=== PATIENT | female | born 1945 ===

== ENCOUNTER 2023-10-02 13:41 | Outpatient (REF) | payer MEDICARE, SELFPAY ==
[2023-10-02 13:54] LABS: Appearance Urine Turbid; Color Urine Yellow; Glucose Urine UA Negative (Negative); Leukocyte Esterase Urine Large (3+) (Negative); Nitrite Urine Negative (Negative); UMIC TRIGGER UACC YES; Urine Blood Moderate (2+) (Negative); Urine Ketones Negative (Negative); Urine Protein Trace mg/dL (Neg-Trace)
[2023-10-02 13:59] LABS: Bacteria Urine 4+ (None Seen); Squamous Epithelial Cell Urine 0-2 /HPF (0-2); UACC Culture Trigger YES; WBC Urine >50 /HPF (0-5)
== END 2023-10-02 13:42 | disposition home or self-care (01) ==
LOC: HO.MANLNP 13:41
PROVIDERS: Visit Provider Physician Assistant
DX: R30.0 Dysuria (principal)
CPT/HCPCS: 81001; 87086; 87088; 87186

== ENCOUNTER 2024-04-17 10:24 | Outpatient (REF) | payer MEDICARE, SELFPAY ==
--- OUTSIDE RECORDS SUMMARY | 2024-04-17 11:15 | XMS_ITS | Data Portability ---
Author Organization [facility], Home Service Address [address] [place] [address] Assessment Encounter Date Assessment Date Assessment LastModified by Organization Details LastModified Time 07/06/2022 07/06/20[place] [id number] [place] [id number] (CATERING COORDINATOR) : [facility] LOW MUST MEET 2 OF 3 ELEMENTS: PROBLEMS, DATA OR RISK ELEMENT 1: PROBLEMS ADDRESSED (LOW): 2 OR MORE SELF-LIMITED OR MINOR PROBLEMS OR 1 STABLE CHRONIC ILLNESS OR 1 ACUTE UNCOMPLICATED ILLNESS OR INJURY ELEMENT 2: DATA TO BE REVISED AND ANALYZED (LOW) MUST MEET 1 OF 2 CATEGORIES: CATEGORY 1. REVIEW OF PRIOR EXTERNAL NOTES/RESULTS, ORDERING OF TEST(S) CATEGORY 2. ASSESSMENT REQUIRING INDEPENDENT HISTORIAN(S) INCLUDE WHO THE HISTORIAN IS AND RELATION TO PT AND WHY PT IS UNABLE TO GIVE COMPLETE HISTORY ELEMENT 3: RISK (LOW) RISK OF COMPLICATIONS AND/OR MORBIDITY OR MORTALITY OF PATIENT MANAGEMENT PROVIDER MUST THOROUGHLY DOCUMENT ALL OF THE ELEMENTS COVERED Not available 07/06/2022 12:10:50 10/02/2023 10/02/2023 The patient denies recent falls or recurrent falls. Denies instability, weakness, abnormal gait, or difficulties with movement. The patient wears correct, supportive shoes and is not otherwise severely visually impaired. The patient is full weight bearing and if using the assistance of a cane or walker feels supported and stable with the use of such devices. All medical conditions have been taken into account that may pose a risk for the patient for falls. Home adelia, carpets and/or rugs do not pose a challenge for the patient. The patient has been educated about the use of vitamin D supplementation for bone health and prevention of hypotensive episodes that may increase risk for fall. All question and concerns were answered to the patient's satisfaction. [email or web address] Not available 10/02/2023 10:16:44 Plan of Treatment Reminders Order Date Submit Date Provider Last Modified By Organization Details Last Modified Time Details Appointments ANNUAL EXAM 2024 10:00A M RUBIN SINGH Not available Not available Not available Lab urinalysi s, dipstick 2023 024 [email or web address] [facility], [address], [address], [place], [address], 10/02/2023 10:13:42 urinalysi s complete, reflex culture 2023 [facility], [address] [facility], [place], [address], 10/03/2023 11:16:55 CMP, serum or plasma 2023 [facility], [place], [address], 10/02/2023 10:19:48 CBC w/ auto diff 2023 024 [facility], [place], [address], 10/02/2023 10:19:48 lipid panel, blood 2023 024 [email or web address], [place], [address], 10/02/2023 10:19:48 vitamin D, 25-hydrox y, total, serum 2023 024 [facility], [place], [address], 10/02/2023 10:19:49 TSH + free T4, serum 2023 024 [facility], [place], [address], 10/02/2023 10:19:48 hemoglobi n A1c, QN, blood 2023 024 [facility] [place], [address], 10/02/2023 10:19:48 urinalysi s, dipstick 2023 024 [email or web address] [facility], [address] [place] [address], [address], [place], [address], 06/18/2023 10:41:08 urinalysi s complete, reflex culture 2023 024 [email or web address] Not available 06/18/2023 10:42:43 urinalysi s, dipstick 2022 023 [facility], [address] [place] [address], [address], [place], [address], 06/27/2022 12:34:45 Referral None recorded. Procedures None recorded. Surgeries None recorded. Imaging None recorded. Medication Orders sulfameth oxazole 800 mg-trimet hoprim 160 mg tablet 2023 024 [facility], [address] [place], [address], 10/02/2023 10:15:49 Bactrim DS 800 mg-160 mg tablet 2023 024 [facility], [address] [place], [address], 10/02/2023 10:09:17 cephalexi n 500 mg capsule 2022 023 [email or web address] [facility]armacy [facility], [address] [place], [address], 07/06/2022 11:50:29 Patient TargetsNo targets recorded. Patient Instructions Encounter Date Encounter Id Patient Instructions Last Modified By Organization Details Last Modified Time 06/27/2022 [id number] Urinary Tract Infection (UTI) in Women: Care Instructions Not available 06/27/2022 12:34:46 painful urinatio n (dysuria): care instructions Not available 06/27/2022 12:34:46 Reason for Referral None Reported. Results Created Date Observation Date Name Description Value Unit Range Abnormal Flag Note LastModifiedBy Organization Detail LastModifiedTime 06/28/1906/27/2022 urina lysis , dipst ick Leukocytes Large Not Available [facility] [address] [place] [address] D, [place], [address], 06/27/2022 12:00:45 06/28/19 23 06/27/2022 urina lysis , dipst ick Nitrite negati ve Not Available [facility] [address], [place], [address], 06/27/2022 12:00:45 06/28/19 23 06/27/2022 urina lysis , dipst ick Urobilinogen .2 Not Available [facility] [address] [place] [address] D, [place], [address], 06/27/2022 12:00:45 06/28/19 23 06/27/2022 urina lysis , dipst ick Protein 30 Not Available [address], [place], [address], 06/27/2022 12:00:45 06/28/19 23 06/27/2022 urina lysis , dipst ick pH 6.0 Not Available [facility] [address], [place], [address], 06/27/2022 12:00:45 06/28/19 23 06/27/2022 urina lysis , dipst ick Blood Large Not Available [facility] [address] [place] [address] D, [place], [address], 06/27/2022 12:00:45 06/28/19 23 06/27/2022 urina lysis , dipst ick Specific [place] 1.020 Not Available [facility] [address], [place], [address], 06/27/2022 12:00:45 06/28/19 23 06/27/2022 urina lysis , dipst ick Ketone Negati ve Not Available [facility] [address], [place], [address], 06/27/2022 12:00:45 06/28/19 23 06/27/2022 urina lysis , dipst ick Bilirubin Negati ve Not Available [facility] [address], [place], [address], 06/27/2022 12:00:45 06/28/19 23 06/27/2022 urina lysis , dipst ick Glucose Negati ve Not Available [facility] [address], [place], [address], 06/27/2022 12:00:45 06/28/19 23 06/27/2022 urina lysis , dipst ick Appearance Cloudy Not Available [facility] [address], [place], [address], 06/27/2022 12:00:45 06/28/19 23 06/27/2022 urina lysis , dipst ick Color Yellow Not Available [facility] [address], [place], [address], 06/27/2022 12:00:45 06/18/19 24 06/18/2023 urina lysis , dipst ick Leukocytes Small Not Available [facility] [address], [place], [address], 06/18/2023 10:38:42 06/18/19 24 06/18/2023 urina lysis , dipst ick Nitrite positi ve Not Available [facility] [address], [place], [address], 06/18/2023 10:38:42 06/18/19 24 06/18/2023 urina lysis , dipst ick Urobilinogen 1 Not Available [facility] [address], [place], [address], 06/18/2023 10:38:42 06/18/19 24 06/18/2023 urina lysis , dipst ick Protein Trace Not Available [facility] [address], [place], [address], 06/18/2023 10:38:42 06/18/19 24 06/18/2023 urina lysis , dipst ick pH 5.5 Not Available [address], [place], [address], 06/18/2023 10:38:42 06/18/19 24 06/18/2023 urina lysis , dipst ick Blood Small Not Available [address], [place], [address], 06/18/2023 10:38:42 06/18/19 24 06/18/2023 urina lysis , dipst ick Specific [place] 1.025 Not Available [address], [place], [address], 06/18/2023 10:38:42 06/18/19 24 06/18/2023 urina lysis , dipst ick Ketone Small Not Available [address], [place], [address], 06/18/2023 10:38:42 06/18/19 24 06/18/2023 urina lysis , dipst ick Bilirubin Negati ve Not Available [facility] [address], [place], [address], 06/18/2023 10:38:42 06/18/19 24 06/18/2023 urina lysis , dipst ick Glucose Negati ve Not Available [address], [place], [address], 06/18/2023 10:38:42 06/18/19 24 06/18/2023 urina lysis , dipst ick Appearance Clear Not Available [address], [place], [address], 06/18/2023 10:38:42 06/18/19 24 06/18/2023 urina lysis , dipst ick Color Dark Yellow Not Available [address], [place], [address], 06/18/2023 10:38:42 10/02/19 24 10/02/2023 urina lysis , dipst ick Leukocytes Modera te Not Available [address], [place], [address], 10/02/2023 10:07:56 10/02/19 24 10/02/2023 urina lysis , dipst ick Nitrite positi ve Not Available [address], [place], [address], 10/02/2023 10:07:56 10/02/19 24 10/02/2023 urina lysis , dipst ick Urobilinogen .2 Not Available [address], [place], [address], 10/02/2023 10:07:56 10/02/19 24 10/02/2023 urina lysis , dipst ick Protein Negati ve Not Available [address], [place], [address], 10/02/2023 10:07:56 10/02/19 24 10/02/2023 urina lysis , dipst ick pH 6.0 Not Available [facility] [address], [place], [address], 10/02/2023 10:07:56 10/02/19 24 10/02/2023 urina lysis , dipst ick Blood Modera te Not Available [facility] [address], [place], [address], 10/02/2023 10:07:56 10/02/19 24 10/02/2023 urina lysis , dipst ick Specific [place] 1.015 Not Available [facility] [address], [place], [address], 10/02/2023 10:07:56 10/02/19 24 10/02/2023 urina lysis , dipst ick Ketone Negati ve Not Available [facility] [address], [place], [address], 10/02/2023 10:07:56 10/02/19 24 10/02/2023 urina lysis , dipst ick Bilirubin Negati ve Not Available [facility] [address], [place], [address], 10/02/2023 10:07:56 10/02/19 24 10/02/2023 urina lysis , dipst ick Glucose Negati ve Not Available [facility] [address], [place], [address], 10/02/2023 10:07:56 10/02/19 24 10/02/2023 urina lysis , dipst ick Appearance Cloudy Not Available [facility] [address], [place], [address], 10/02/2023 10:07:56 10/02/19 24 10/02/2023 urina lysis , dipst ick Color Pale Yellow Not Available [facility] [address], [place], [address], 10/02/2023 10:07:56 Result Notes None recorded. 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 0337687697 018579 Active 2018 Right thumb Not Available [facility] 16:20:10 Bunion 969952180 Active 2018 Great toe right foot Not Available [facility] 16:20:10 Fibrocys tic disease of breast 53900501 Active 2018 Not Available [facility] 16:20:10 Disorder of urinary bladder 82613632 Completed 201807/18/2018 bladder infectio ns Deana escobedo [facility] 9 16:46:56 Varicell a 50410708 Completed 201807/18/2018 Deana escobedo [facility] 9 16:47:08 Human papillom a virus infectio n 352315563 Completed 201807/21/2018 last pap 10/09 - negative for hpv June CHESTER Arredondo [address], [place], [address], [facility] 9 09:49:53 Osteoart hritis of knee 190440131 Active 2018 both knees Not Available [facility] 16:20:10 Uterine prolapse 97719512 Active 2018 pessary Not Available [facility] 16:20:10 Psoriasi s 0480831 Active 2018 Not Available [facility] 16:20:10 Eczema 98465832 Active 2018 Not Available [facility] 16:20:10 Adenomat ous polyp of colon 117976229 Active 2018 Not Available [facility] 1 16:20:10 Essentia l hyperten earnest 61384831 Active 2019 Not Available [facility] 16:20:10 Hearing loss 90239681 Active 2019 Not Available [facility] 16:20:10 COVID-19 658759673 Active 2021 [facility] 09:09:16 Urinary tract infectio us disease 87353716 Active 2022 Gabriel Munoz DO [address] [place] [address], [address], [facility] 3 12:29:53 Surgical incision wound of skin 4729665951 00 Active 2022 Gabriel Munoz DO [address] [place] [address], [address], [facility] 3 12:32:19 Local infectio n of wound 74752942 Active 2022 Gabriel Munoz DO [address] [place] [address], [address], [facility] 3 12:10:09 Impacted cerumen 37900649 Active 2022 RUBIN SINGH [address] [place] [address], [address], [facility] 3 14:39:31 Acute urinary tract infectio n 126848199 Active 2023 RUBIN SINGH [address] [place] [address], [address], [facility] 4 10:37:33 Dysuria 33988254 Active 2023 RUBIN SINGH [address] [place], [address], [facility] 4 10:16:08 Problem Notes None recorded. Procedures Surgical History Date Name Laterality Status Provider Name and Address Organization Details Recorded Time 10/17/19 23 Cerumen Removal completed RUBIN SINGH [address] [place], [address], [facility] 10/16/2022 14:39:18 01/14/20 19 Cerumen Removal completed Juliette CHESTER Arredondo [address] [place], [address], [facility] 01/13/2019 10:34:33 10/07/19 19 Most Recent Mammogram completed [facility] 01/26/2019 14:15:16 12/12/19 12 colonoscopy completed June [facility] [address] [place], [address], [facility] 07/21/2018 09:56:37 10/13/19 08 Date of Last Pap Smear completed [facility] 07/18/2018 16:51:38 Imaging Results None recorded. Procedure Notes None recorded. Medical Equipment None Reported. Allergies Allergen ID Allergen Name Allergen Category Reaction Reaction Severity Criticality Documentation Date Start Date Code Code System Note Provider Name and Address Organization Details Recorded Time 4697 POLLEN EXTRACTS environme nt,medica tion Not available Not available Not available 10/25/2020 23930 6 RxNorm Ruth Mercado [facility] 1 08:42:25 6792 Keflex medicatio n Not available Not available Not available 07/17/202265842 7 RxNorm Gabriel Munoz, [address] [place], [address], [facility] [employer] [facility] 3 16:21:00 Medications Name Sig Start Date Stop Date Status Note LastModified by Organization Details LastModified Time celecoxib 200 mg capsule TAKE 1 CAPSULE BY MOUTH EVERY DAY . MEDICATIO N TO BE STARTED ON 3 07/06 completed Not Available Not Available Not Available amoxicilli n 500 mg capsule TAKE DIRECTED 4 TABS BY MOUTH 1 HR PRIOR DENTAL APPT active Not Available Not Available No t Available desonide 0.05 % topical cream 07/06 completed Not Available Not Available Not Available Vitamin C 500 mg tablet Take 1 tablet every day by oral route. 10/01 completed Not Available Not Available Not Available azithromyc in 250 mg tablet TAKE 2 TABLETS (500 MG) BY ORAL ROUTE ONCE DAILY FOR 1 DAY THEN 1 TABLET (250 MG) BY ORAL ROUTE ONCE DAILY FOR 4 DAYS 07/06 completed Not Available Not Available Not Available tizanidine 4 mg tablet TAKE 0.5 TO 1 TABLET UP TO THREE TIMES A DAY NEEDED FOR MUSCLE SPASMS 07/06 completed Not Available Not Available Not Available meloxicam 15 mg tablet TAKE 1 TABLET BY MOUTH EVERY DAY 07/06 completed Not Available Not Available Not Available ondansetro n HCl 4 mg tablet TAKE 1 TABLET BY MOUTH EVERY 8 HOURS NEEDED FOR NAUSEA AND VOMITING 07/06 completed Not Available Not Available Not Available sulfametho xazole 800 mg-trimeth oprim 160 mg tablet TAKE 1 TABLET BY MOUTH EVERY 12 HOURS FOR 7 DAYS active Not Available Not Available No t Available tramadol 50 mg tablet TAKE 1 TO 2 TABLETS BY MOUTH EVERY 6 HOURS NEEDED FOR MILD PAIN. DO NOT EXCEED 8 TABLETS (400MG) PER DAY. 07/06 completed Not Available Not Available Not Available triamcinol one acetonide 0.1 % topical cream 07/06 completed Not Available Not Available Not Available hydromorph one 2 mg tablet TAKE 1 TO 2 TABLETS BY MOUTH EVERY 4 HOURS NEEDED FOR MODERATE TO SEVERE PAIN 07/06 completed Not Available Not Available Not Available aspirin 325 mg tablet,del ayed release TAKE ONE TABLET TWICE A DAY FOR 30 DAYS ONLY. MEDICATIO N TO BE STARTED AFTER SURGERY. 07/06 completed Not Available Not Available Not Available cephalexin 500 mg capsule TAKE 1 CAPSULE BY MOUTH THREE TIMES A DAY FOR 10 DAYS 07/06 completed Not Available Not Available Not Available pantoprazo le 40 mg tablet,del ayed release PLEASE SEE ATTACHED FOR DETAILED DIRECTION S 07/06 completed Not Available Not Available Not Available docusate sodium 100 mg capsule TAKE 1 CAPSULE BY MOUTH TWICE A DAY MEDICATIO N IS TO BE STARTED AFTER SURGERY 07/06 completed Not Available Not Available Not Available zinc 50 mg tablet Take 1 mg every day by oral route. 10/01 completed Not Available Not Available Not Available fluocinoni de 0.05 % topical solution 07/06 completed Not Available Not Available Not Available methylpred nisolone 4 mg tablets in a dose pack FOLLOW PACKAGE DIRECTION S 07/06 completed Not Available Not Available Not Available oxycodone 5 mg tablet TAKE 1-2 TABLETS BY MOUTH EVERY 4 HOURS NEEDED FOR SEVERE PAIN 07/06 completed Not Available Not Available Not Available melatonin 10/01 completed Not Available Not Available Not Available Centrum Silver 10/01 completed Not Available Not Available Not Available Vitamin D3 10/01 completed 25mcg Not Available Not Available Not Available Osteo Bi-Flex bid 01/24 completed Not Available Not Available Not Available Fish Oil 1,000 mg (120 mg-180 mg) capsule Take 1 capsule every day by oral route. 10/01 completed 300mg of omega 3 Not Available Not Available Not Available [employer] At-Home COVID-19 Test kit USE DIRECTED 07/06 completed Not Available Not Available Not Available Vitals Date Recorded Body height Body mass index (BMI) Body weight Heart rate Oxygen saturation Oxygen saturation in Arterial blood by Pulse oximetry Systolic blood pressure Diastolic blood pressure Provider Name and Address Organization Details Last Updated DateTime 3 170.18 cm 24 kg/m2 01985.6 3 g 78 /min 97 % 97 % 160 mm[Hg] 80 mm[Hg] [facility] 3 11:55:53 Date Recorded Body height Body mass index (BMI) Body weight Heart rate Oxygen saturation Oxygen saturation in Arterial blood by Pulse oximetry Systolic blood pressure Diastolic blood pressure Provider Name and Address Organization Details Last Updated DateTime 3 170.18 cm 23.8 kg/m2 46673.0 4 g 75 /min 100 % 100 % 140 mm[Hg] 80 mm[Hg] Pallavi Yunior [facility] 3 11:52:12 Date Recorded Body height Body mass index (BMI) Body weight Systolic blood pressure Diastolic blood pressure Provider Name and Address Organization Details Last Updated DateTime 10/16/2022 170.18 cm 23.8 kg/m2 19192.04 g 140 mm[Hg] 78 mm[Hg] Pallavi Mojica [facility] 3 14:15:32 Date Recorded Body height Body mass index (BMI) Body weight Heart rate Respiratory rate Oxygen saturation Oxygen saturation in Arterial blood by Pulse oximetry Body temperature Systolic blood pressure Diastolic blood pressure Provider Name and Address Organization Details Last Updated DateTime 4 168.91 cm 25.4 kg/m2 73635.7 g 68 /min 16 /min 97 % 97 % 98.7 [degF] 130 mm[Hg] 72 mm[Hg] Evelio Marsh [facility] 4 10:22:12 Date Recorded Body height Body mass index (BMI) Body weight Heart rate Oxygen saturation Oxygen saturation in Arterial blood by Pulse oximetry Systolic blood pressure Diastolic blood pressure Provider Name and Address Organization Details Last Updated DateTime 4 168.91 cm 25.4 kg/m2 84984.9 8 g 77 /min 99 % 99 % 126 mm[Hg] 72 mm[Hg] Evelio Marsh [facility] 4 10:11:07 Social History Question Answer Notes LastModified by Circa ion Details LastModified Time Tobacco Smoking Status Former Smoker Quit in 's. Evelio escobedo [facility] 10/02/2023 10:10:02 What Was The Date Of Your Most Recent Tobacco Screening? 10/02/2023 [email or web address] Information not available 10/02/2023 How Many Years Have You Smoked Tobacco? 10 [email or web address] Information not available 07/21/2018 Do You Or Have You Ever Used Any Other Forms Of Tobacco Or Nicotine? No [email or web address] Information not available 06/27/2022 Sex: Unknown Functional Status None recorded. Mental Status None recorded. Family History Relationship Description Onset Age of this Age Resolved Age Notes LastModified by Organization Details LastModified Time Brother Family history of malignant neoplasm 7 7 Throat cancer [email or web address] Not available 07/21/2018 09:45:46 Mother Multiple sclerosis [email or web address] Not available 2018 16:50:13 Mother Coronary arterioscler osis [email or web address] Not available 2018 16:53:41 Father History of hypertension [email or web address] Not available 09:30:00 Father Coronary arterioscler osis [email or web address] Not available 2018 16:54:13 Maternal Grandfather Coronary arterioscler osis [email or web address] Not available 2018 16:54:21 Daughter Coronary arterioscler osis sbucko Not available 2018 16:54:46 Medical History Condition Response Coronary Artery Disease N Other N Gout N Kidney Stones N Blood Diseases N Breast Cancer N Blood Transfusion N Lung Disease N Depression N COPD N Defects or Inherited Disease N Anxiety Disorder N Muscle, Joint, or Bone Problems N Obesity N Vision or Eye Problems N Arthritis N Polyps N Infertility N Mental Disorder N Cancer N Varicosities N Stroke N Endometriosis N Bladder or Kidney Problems N High Cholesterol N Liver Disease N Headaches N Fibromyalgia N Kidney Disease N Allergies/Hayfever N Heart Problems N Hospitalizations N Thyroid Problems N GI Problems N Skin Problems N Eating Disorder N Anemia N MRSA exposure N Constipation N Mental Illness N Ovarian Cancer N Diabetes N Seizures/Epilepsy N Tuberculosis N Congestive Heart Failure (CHF) N Eczema N Diverticulitis N Abuse/Domestic Violence N Asthma N Reflux/GERD N Hepatitis N Heart Disease N Pulmonary Embolism N Hypertension N Osteoporosis N Chicken Pox N Autism Spectrum Disorder (ASD) N Gynecological History Statement/Question Response Date of Last Pap Smear 10/13/2007 Most Recent Mammogram 10/06/2018 Obstetrics History GPAL:G 0 P 0 0 0 0 Immunizations Vaccine Type Date Status Note Provider Nam e and Address Organization Details Recorded Time COVID-19, mRNA, LNP-S, PF, 30 mcg/0.3 mL dose 1 completed Not Available [facility] 04/09/2023 17:50:26 Pneumococcal conjugate PCV 13 6 completed [facility] [address], [address], [facility] 07/21/2018 09:52:32 Tdap 6 completed [facility] [address], [address], [facility] 07/21/2018 09:52:51 Past Encounters Encounter ID Performer Location Encounter Start Date Encounter Closed Date Diagnosis/Indication Diagnosis SNOMED-CT Code Diagnosis ICD10 Code Diagnosis Note [facility] [address] [place] [address],[place] [address] 07/21/2018 09:18:20 07/21/2018 14:12:53 Body mass index 25-29 - overweight 013094411 Z68.26 Elevated blood-pressure reading without diagnosis of hypertension 615958084 R03.0 has cuff at home states she has white coat Active or passive immunization 458419782 Z23 discussed shingles Adult heal th examination 201090740 Z00.00 will schedule [facility] will order labs will check with ob for bone density Vitamin D deficiency 347 77275 E55.9 Decreased estrogen level 809055851 E28.39 [id number] [facility] [address] [place] [address] 01/13/2019 09:58:32 01/13/2019 10:53:29 Impacted cerumen of bilateral ears 8691099848 649152 H61.23 resolved Hearing loss 94550678 H9 1.93 improved after successful irrigation [id number] [facility] [address] [place] [address] 01/20/2019 08:59:27 01/20/2019 09:39:28 Adult health examination 664647419 Z00.00 HCP - ppw provided Screening for malignant neoplasm of colon 745358022 Z12.11 planning to schedule Screening for osteoporosis 210637040 Z13.820 normal 10/10/18 Active or passive immunization 940600103 Z23 refuses flu shot had gotten the flu while vaccinated Body mass index 25-29 - overweight 021694818 Z68.26 make healthy diet choices exercise - try to walk daily [id number] RUBIN SINGH [facility] [address] [facility],[place] [address] 01/25/2020 08:58:08 01/25/2020 12:25:03 Adult health examination 456643853 Z00.00 BP fine at home per patient she monitors it Screening for cardiovascular system disease 379420578 Z13.6 [place] [id number] RUBIN SINGH [facility] [address] [place] [address] 10/25/2020 08:07:54 10/25/2020 14:24:45 Exposure to SARS-CoV-2 225507343 Z20.822 given an order for COVID testing at [facility] [id number] RUBIN SINGH [facility] [address] [facility] [address] 03/01/2021 08:09:37 03/01/2021 11:55:23 Pain of left hip joint 8173503101 49883 M25.552 will set up with Sridhar send report to her rheumwill start on safer alternativ e tramadol due to her reaction to NSAIDs and suggestion from rheum to avoid NSAIDs [id number] Gabriel Munoz DO [facility] [address] [facility] [address] 06/27/2022 11:46:49 06/27/2022 12:59:27 Dysuria 19404927 R30.0 Urinary tr act infectious disease 39895631 N39.0 urine dip pos for wbc and heme will tx with see below Surgical i ncision wound of skin 7380242993 00 R23.8 has had apr replacemen t of right knee but has noticed end of incision has not healed and now is red around a scab scab appears to be suture that has not dissolvedw e will tx with cephalexin which juanis cover the UTI as well [id number] Gabriel Munoz DO [facility] [address] [facility], [address] [facility] [place] [address] 07/06/2022 11:43:23 07/06/2022 14:03:03 Local infection of wound 38353617 T14.90XS now looking goodfinish abx and probiotic [id number] RUBIN SINGH [facility] [address] [facility], [place] [address] 10/16/2022 14:09:16 10/16/2022 15:40:29 Hearing loss 10050244 H91.93 resolved Impacted cerumen 4049799 6 H61.23 resolved [id number] RUBIN SINGH [facility] [address] [facility],[place] [address] 06/18/2023 10:17:08 06/18/2023 13:37:14 Acute urinary tract infection 778018725 N34.2 will set up with bactrimwil l send out urine [id number] RUBIN SINGH [facility] [address] [facility] [address],[place] [address] 10/02/2023 09:58:54 10/04/2023 14:39:43 Active or passive immunization 954951977 Z23 advised Adult heal th examination 298471452 Z00.00 BP fine at home per patient she monitors it Depression screening 171 987627 Z13.31 negative Dysuria 49708652 R30.0 will send urine Health Concerns Section Related Observation LastModified by Organization Detai ls LastModified Time None Recorded Concern Status LastModified by Organization Details LastModified Time None Recorded Advance Directives Directive None Recorded Payers Encounter Date Sequence Insurance Name Policy Number Policy Porter Covered Member ID Porter Member ID Guarantor Name 06/27/2022 2 [facility] - PREFERRED (MEDICARE SUPPLEMENT) [id number] Agnes A Ricardo [id number] Agnes A Ricardo 06/27/2022 1 [place] [employer] Agnes A Ricardo [id number] Agnes A Ricardo 07/06/2022 2 [facility] PLAN - PREFERRED (MEDICARE SUPPLEMENT) [id number] Agnes A Ricardo [id number] Agnes A Ricardo 07/06/2022 1 [place] [facility] Agnes A Ricardo [id number] Agnes A Ricardo 10/16/2022 2 [facility] PL[facility] - PREFERRED (MEDICARE SUPPLEMENT) [id number] Agnes A Ricardo [id number] Agnes A Ricardo 10/16/2022 1 MEDICARE [facility]: NATIONAL GOVERNMENT [facility] Agnes A Ricardo [id number] Agnes A Ricardo 06/18/2023 2 [facility] Agnes A Ricardo [id number] Agnes A Ricardo 06/18/2023 1 [place] [facility] [facility] Agnes A Ricardo [id number] Agnes A Ricardo 10/02/2023 2 [facility] Agnes A Ricardo [id number] Agnes A Ricardo 10/02/2023 1 MEDICARE [facility]: NATIONAL G[employer]ERNMENT [facility] Agnes Ricardo [id number] Agnes Ricardo Notes Date Note Type Note Provider Name and Address Organization Details Recorded Time 3 text/htm l havng an issue with her prob 2 day ago with frequency and sl dysuriahas been persistant despite fluids and cranberry etcno fever no chillseating and drinking fineno flank pain Gabriel RosibelAmisha Munoz DO [address] [place], [address], [facility] 06/27/2022 12:36:07 3 text/htm l here to check the right incisional infectionwound is now feeling better and now no longer soreand finished the meds Gabriel Munoz DO [address] [place], [address], [facility] 07/06/2022 12:12:13 3 text/htm l c/o impaction lavage performed by Mraio improvedtolerated well TMs seen well on exam RUBIN SINGH [address] [place], [address], [facility] 10/16/2022 14:39:48 4 text/htm l c/o UTI symptoms Patient called this morning for SDV due to urinary frequency, increased urge to urinate, feelings of incomplete voiding looks darker than usualno smell that patient is picking up the patient is otherwise doing well she does report some urinary incontinenceworking on kegel exercises the patient has a pessary in place as well RUBIN SINGH [address] [place], [address], [facility] 06/18/2023 10:43:34 4 text/htm l Annual WellnessReported bypatient.Diet and Nutrition:healthy diet; discussed vitamin and supplement use; discussed portion control; discussed maintaining calcium balance; discussed diet improvement Fracture Risk:no history of fractures; no recent explained fracture; no sudden unexplained fractures; no previous musculoskeletal injuries Physical Activity:exercises on a regular basis; recent increase in physical activity; good physical condition Additional Lifestyle Factors:no tobacco use; no alcohol intake; stopped drinking alcohol Depression Risk:never feels sad, empty, or tearful; no loss of interest in activities; no significant changes in weight; no sleep disturbances or insomnia; no agitation; no loss of energy; no feelings of worthlessness or guilt; no thoughts of suicide; no history of depression; no history of mood disorders Hearing:no loss of hearing Vision:no vision problems; wears glasses RUBIN SINGH [address] [place] [address], [address], [facility] 10/02/2023 10:39:56 OBGyn Episode No OBEpisode recorded.
[2024-04-17 13:44] LABS: Color Urine Yellow; Glucose Urine UA Negative (Negative); Leukocyte Esterase Urine Large (3+) (Negative); Nitrite Urine Negative (Negative); UMIC TRIGGER UACC YES; Urine Blood Moderate (2+) (Negative); Urine Ketones Negative (Negative); Urine Protein Negative (Neg-Trace)
[2024-04-17 13:45] LABS: Appearance Urine Hazy; Bacteria Urine None Seen (None Seen); Hyaline Casts Urine 0-2 /LPF (0-2); Squamous Epithelial Cell Urine 0-2 /HPF (0-2); UACC Culture Trigger YES; WBC Urine >50 /HPF (0-5)
== END 2024-04-17 10:25 | disposition home or self-care (01) ==
LOC: HO.MANLDS 10:24
PROVIDERS: Visit Provider Physician Assistant
DX: N34.2 Other urethritis (principal)
CPT/HCPCS: 81001; 87086

== ENCOUNTER 2024-10-13 12:56 | Outpatient (REF) | payer MEDICARE, SELFPAY ==
[2024-10-13 13:09] LABS: Appearance Urine Turbid; Glucose Urine UA Negative (Negative); PH 5.5 (5.0-9.0); Specific Gravity - Urine 1.010 (1.005-1.025); UMIC TRIGGER UACC YES
[2024-10-13 13:22] LABS: UACC Culture Trigger YES
--- OUTSIDE RECORDS SUMMARY | 2024-10-13 13:40 | XMS_ITS | Encounter Summary ---
Author Organization [facility] Address [address] [place] [address] Phone Care Team Providers Care Child Care Attendant Name Role Phone Gabriel Munoz Primary Care Provider [phone] Bigda, Gabriel Gleason DO Primary Care Provider [phone] DemarcodaGabriel DO Unavailable Palmira Yee MD Unavailable Marlo Buchanan DO Unavailable [phone] Jenny Pena OXIDATION ENGINEER Unavailable Beny Bee MD Unavailable Nathan Barcenas MD Unavailable Unavailable May Rendon RDCS Unavailable [email or web address] Gabriel Munoz DO Unavailable Encounter Details Date Type Department Care Team (Latest Contact Info) Description 10/25/2020 Transcribe Orders Virtual Department [address] [place] [address] Jayda Harris PA [address] [place] [address] [address] [place] [address] Encounter for laboratory testing for COVID-19 virus (Primary Dx) Social History Tobacco Use Types Packs/Day Years Used Date Smoking Tobacco: Former Cigarettes 1.5 13 Smokeless Tobacco: Never Alcohol Use Standard Drinks/Week Comments Yes 1 (1 standard drink = 0.6 oz pur e alcohol) daily Comments No Sex and Gender Information Value Date Recorded Sex Assigned at Female 03/11/2017 9:38 AM EST Legal Sex Female 10:07 PM EDT Gender Identity Female 03/11/2017 9:38 AM EST Sexual Orientation Straight 03/11/2017 9: 38 AM EST Occupation Industry Job Start Date Job End Date retired Not on file Not on file Not on file documented as of this encounter Plan of Treatment Not on file documented as of this encounter Results * COVID-19 PCR Order (10/25/2020 1:10 PM EDT) COVID Testing Status Specimen received in analyzing lab. Results should be available within 24 to 48 hrs. [facility] Symptomatic? NO [facility] Other (Nasal swab) 10/25/2020 1:10 PM EDT 10/25/2020 5:57 PM EDT Jayda CONKLIN BODY FLUIDS AND STOOLS DONATO CHASE Final Result Performing Organization Address City/State/[facility] Co de Phone Number [facility] [address] [place] [address] [facility] [address] [place] [address] documented in this encounter Visit Diagnoses Diagnosis Encounter for laboratory testing for COVID-19 virus- Primary documented in this encounter Additional Health Concerns Infection Onset Date Last Indicated Resolved Time CoV-Exposed Comment:Recent close contact documented in the COVID-19 PCR/PRO order 10/25/2020 10/25/2020 11/09/2020 1:23 AM E DT documented as of this encounter Care Teams Child Care Attendant Relationship Specialty Start Date End Date Gabriel Munoz DO PCP - General Internal Medicine 05/06/18 04/22/24 Gabriel Munoz DO [address] [place] [address] PCP - General Internal Medicine 04/23/24 Gabriel Munoz DO Internal Medicine 04/23/24 Palmira Yee MD 22 [facility] [address] [place] [address] Historical LMR Provider 12/22/16 Marlo Buchanan DO [address] [place] [address] Orthopedics & Sports Medicine, [facility] [place] [address] Historical LMR Provider 12/22/16 03/11/21 Jenny Pena, KATHRYN 14 [facility] [address] [place] [address] [email or web address] Historical LMR Provider 12/22/16 03/11/21 Beny Bee MD [address] [place] [address] [place] [address] Historical LMR Provider 12/22/16 03/11/21 Nathan Barcenas MD Historical LMR Provider 12/22/16 03/11/21 May Rendon, RDCS Historical LMR Provider 12/22/16 03/11/21 Gabriel Munoz DO 179 [facility] [place] [address] Insurance Assigned Provider 12/12/19 01/12/23 documented as of this encounter Additional Source Comments The information contained in this document represents components of the legal health record. It is not the complete legal health record.[facility]
== END 2024-10-13 12:57 | disposition home or self-care (01) ==
LOC: HO.MANLNP 12:56
PROVIDERS: Visit Provider Physician Assistant
DX: N39.0 Urinary tract infection, site not specified (principal)
CPT/HCPCS: 81001; 87086; 87088; 87186

== ENCOUNTER 2024-11-18 12:02 | Outpatient (REF) | payer MEDICARE, SELFPAY ==
--- OUTSIDE RECORDS SUMMARY | 2024-11-18 15:32 | XMS_ITS | Encounter Summary ---
Author Organization [facility] Address [address] [place] [address] Phone Care Team Providers Care Svp Business Development Name Role Phone Gabriel Munoz DO Primary Care Provider [phone] Bigda, Gabriel Rosibel DO Primary Care Provider [phone] DemarcodaGabriel DO Unavailable Palmira Yee MD Unavailable [phone] Marlo Buchanan DO Unavailable [phone] Jenny Pena MINING SUPPORT WORKER Unavailable Beny Bee MD Unavailable [phone] Nathan Barcenas MD Unavailable Unavailable May Rendon RDCS Unavailable [email or web address] Gabriel Munoz DO Unavailable Encounter Details Date Type Department Care Team (Late st Contact Info) Description 10/05/2020 Procedure Pass [facility], [address] [address] Social History Tobacco Use Types Packs/Day Years [...] as of this encounter Plan of Treatment Upcoming Encounters Date Type Department Care Team ([facility] Contact Info) Description 12/07/2024 11:20 AM EDT Office Visit [facility] [address] [place] [address] Palmira Yee MD [address] [email or web address] documented as of this encounter Visit Diagnoses Not on filedocumented in this encounter Additional Health Concerns Infection Onset Date Last Indicated Resolved Time CoV-Exposed Comment:Recent close contact documented in the COVID-19 PCR/PRO order 10/25/2020 10/25/2020 11/09/2020 1:23 AM E DT documented as of this encounter Care Teams Svp Business Development Relationship Specialty Start Date End Date Gabriel Munoz DO PCP - General Internal Medicine 05/06/18 04/22/24 Gabriel Munoz DO [address] [place] [address] PCP - General Internal Medicine 04/23/24 Gabriel Munoz DO Internal Medicine 04/23/24 Palmira Yee MD [address] [place] [address] Historical LMR Provider 12/22/16 Marlo Buchanan DO [address] [place] [address] Orthopedics & Sports Medicine, [place] [address] [email or web address] Historical LMR Provider 12/22/16 03/11/21 Jenny Pena CNP [address] [place] [address] [place] [address] [email or web address] Historical LMR Provider 12/22/16 03/11/21 Beny Bee MD [address] [place] [address] [place] [address] [email or web address] Historical LMR Provider 12/22/16 03/11/21 Nathan Barcenas MD Historical LMR Provider 12/22/16 03/11/21 May Rendon RDCS [email or web address] Historical LMR Provider 12/22/16 03/11/21 Gabriel Munoz DO [address] [place] [address] [email or web address] Insurance Assigned Provider 12/12/19 01/12/23 documented as of this encounter Additional Source Comments The information contained in this document represents components of the legal health record. It is not the complete legal health record.[facility]
--- OUTSIDE RECORDS SUMMARY | 2024-11-18 15:32 | XMS_ITS | Encounter Summary ---
Author Organization [facility] Address [address] [place] [address] Phone Care Team Providers Care Jewelry Polisher Name Role Phone Gabriel Munoz DO Primary Care Provider [phone] Bigda, Gabriel Gleason DO Primary Care Provider [phone] Gabriel Munoz DO Unavailable Palmira Yee MD Unavailable Marlo Buchanan DO Unavailable Jenny Pena HOTEL GENERAL MANAGER Unavailable Beny Bee MD Unavailable [phone] Nathan Barcenas MD Unavailable Unavailable May Rendon RDCS Unavailable [email or web address] Gabriel Munoz DO Unavailable Encounter Details Date Type Department Care Team (Latest Contact Info) Description 03/01/2021 Transcribe Orders Virtual Department [address] [place] [address] Jayda Harris PA [address] [place] [address] [place] [address] Left hip pain (Primary Dx) Social History Tobacco Use Types [...] Upcoming Encounters Date Type Department Care Team (Late st Contact Info) Description 12/07/2024 11:20 AM EDT Office Visit [facility] [address] [place] [address] Palmira Yee MD 22 [facility], [address] [place] [address] [email or web address] documented as of this encounter Results * XR PELVIS AP PLUS FROG OR OUTLET 2 VIEWS (03/08/2021 10:39 AM EST) Anatomical Region Laterality Modality Hip, Pelvis Computed Radiogr aphy 03/08/2021 11:0 6 AM EST Impressions 03/08/2021 11:10 AM EST 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 POS - [id number] Narrative 03/08/2021 11:10 AM EST COMPARISON: None FINDINGS: AP views the pelvis were obtained with hips in neutral and frog-lateral positions. There are severe advanced osteoarthritic changes in both hips with marked joint space narrowing and advanced periarticular spurring. Femoral head articular surfaces appear to be relatively smooth without overt collapse of the femoral head although subchondral cystlike lucencies in the acetabula and femoral heads making it difficult to exclude early avascular necrosis. No fracture or subluxation. Degenerative disc changes are present in the lower lumbar spine with mild degenerative changes present in the sacroiliac joints, particularly on the left. Incidental note is made of a pessary. Procedure Note Emeka Kat MD - 03/08/2021 COMPARISON: None FINDINGS: AP views the pelvis were obtained with hips in neutral and frog- lateralpositions. There are severe advanced osteoarthritic changes in both hipswith marked joint space narrowing and advanced periarticular spurring.Femoral head articular surfaces appear to be relatively smooth withoutovert collapse of the femoral head although subchondral cystlike lucenciesin the acetabula and femoral heads making it difficult to exclude earlyavascular necrosis. No fracture or subluxation. Degenerative disc changes are present in the lower lumbar spine with milddegenerative changes present in the sacroiliac joints, particularly on theleft. Incidental note is made of a pessary. IMPRESSION: Severe advanced bilateral hip osteoarthritis without specific radiographicfindings of avascular necrosis. POS - [id number] Jayda CONKLIN IMG XR PELVIS Final Resul t documented in this encounter Visit Diagnoses Diagnosis Left hip pain- Primary Pain in joint, pelvic region and thigh Left hip pain Pain in joint, pelvic region and thigh documented in this encounter Care Teams Jewelry Polisher Relationship Specialty Start Date End Date Gabriel Munoz DO PCP - General Internal Medicine 05/06/18 04/22/24 Gabriel Munoz DO [address] [facility] [place] [address] PCP - General Internal Medicine 04/23/24 Gabriel Munoz DO Internal Medicine 04/23/24 Palmira Yee MD [address] [place] [address] Historical LMR Provider 12/22/16 Marlo Buchanan DO [address] [place] [address] Orthopedics & Sports Medicine, [place] [address] [email or web address] Historical LMR Provider 12/22/16 03/11/21 Jenny Pena CNP [address] [place] [address] [place] [address] [email or web address] Historical LMR Provider 12/22/16 03/11/21 Beny Bee MD [address] [place] [address] [place] [address] [email or web address] Historical LMR Provider 12/22/16 03/11/21 Nathan Barcenas MD Historical LMR Provider 12/22/16 03/11/21 May Rendon, SERACS [email or web address] Historical LMR Provider 12/22/16 03/11/21 Gabriel Munoz DO [address] [place] [address] [email or web address] Insurance Assigned Provider 12/12/19 01/12/23 documented as of this encounter Additional Source Comments The information contained in this document represents components of the legal health record. It is not the complete legal health record.[facility]
--- OUTSIDE RECORDS SUMMARY | 2024-11-18 15:32 | XMS_ITS | Encounter Summary ---
Author Organization [facility] Address [address] [place] [address] Phone Care Team Providers Care Onion Farmer Name Role Phone Gabriel Munoz Primary Care Provider [phone] Bigda, Gabriel Gleason DO Primary Care Provider [phone] DemarcodaGabriel DO Unavailable Pamlira Yee MD Unavailable Marlo Buchanan DO Unavailable [phone] Jenny Pena [employer] BOARD CERTIFIED ORTHOTIST Unavailable Beny Bee MD Unavailable Nathan Barcenas MD Unavailable Unavailable May Rendon RDCS Unavailable [email or web address] Gabriel Munoz DO Unavailable Encounter Details Date Type Department Care Team (Latest Contact Info) Description 10/25/2020 Transcribe Orders Virtual Department [address] [place] [address] Jayda Harris PA [address] [place] [address] [place] [address] Encounter for laboratory testing for COVID-19 virus [...] Description 12/07/2024 11:20 AM EDT Office Visit [facility] [address] [place] [address] Palmira Yee MD [address] [facility], [address] [place] [address] [email or web address] documented as of this encounter Results * COVID-19 PCR Order (10/25/2020 1:10 PM EDT) COVID Testing Status Specimen received in analyzing lab. Results should be available within 24 to 48 hrs. [facility] Symptomatic? NO [facility] Other (Nasal swab) 10/25/2020 1:10 PM EDT 10/25/2020 5:57 PM EDT Jayda CONKLIN BODY FLUIDS AND STOOLS DONATO CHASE Final Result Performing Organization Address City/State/[facility] Co de Phone Number [facility] [address] [place] [address] [facility] [address] [place] [address] documented in this encounter Visit Diagnoses Diagnosis Encounter for laboratory testing for COVID-19 virus- Primary documented in this encounter Additional Health Concerns Infection Onset Date Last Indicated Resolved Time CoV-Exposed Comment:Recent close contact documented in the COVID-19 PCR/PRO order 10/25/2020 10/25/2020 11/09/2020 1:23 AM E DT documented as of this encounter Care Teams Onion Farmer Relationship Specialty Start Date End Date Gabriel Munoz DO PCP - General Internal Medicine 05/06/18 04/22/24 Gabriel Munoz DO [address] [place] [id number] PCP - General Internal Medicine 04/23/24 Gabriel Munoz DO Internal Medicine 04/23/24 Palmira Yee MD [address] [place] [address] Historical LMR Provider 12/22/16 Marlo Buchanan DO [address] [place] [address] Orthopedics & Sports Medicine, [place] [address] Historical LMR Provider 12/22/16 03/11/21 Jenny Pena CNP [address] [place] [address] [place] [address] [email or web address] Historical LMR Provider 12/22/16 03/11/21 Beny Bee MD [address] [place] [address] [place] [address] Historical LMR Provider 12/22/16 03/11/21 Nathan Barcenas MD Historical LMR Provider 12/22/16 03/11/21 May Rendon, RDCS Historical LMR Provider 12/22/16 03/11/21 Gabriel Munoz DO [address] [place] [address] [email or web address] Insurance Assigned Provider 12/12/19 01/12/23 documented as of this encounter Additional Source Comments The information contained in this document represents components of the legal health record. It is not the complete legal health record.[facility]
--- OUTSIDE RECORDS SUMMARY | 2024-11-18 15:32 | XMS_ITS | Encounter Summary ---
Author Organization [facility] Address [address] [place] [address] [place] [address] Phone Care Team Providers Care Rug Renovator Name Role Phone Gabriel Munoz DO Primary Care Provider [phone] Bigda, Gabriel Gleason DO Primary Care Provider [phone] BigdaGabriel DO Unavailable Palmira Yee MD Unavailable Marlo Buchanan DO Unavailable [phone] Jenny Pena AMBULATORY NURSE Unavailable [phone] Beny Bee MD Unavailable Nathan Barcenas MD Unavailable Unavailable May Rendon RDCS Unavailable [email or web address] Gabriel Munoz DO Unavailable Encounter Details Date Type Department Care Team (Late st Contact Info) Description 10/05/2020 Ancillary Orders [facility] [address] [place] [address] Palmira Yee MD [address] [facility], [address] [place], [place] [id number] [email or web address] Breast screening Social History Tobacco Use Types Packs/Day Years [...] Visit [facility] [address] [place] [address] Palmira Yee MD [address] [facility], [address] [place] [address] [email or web address] documented as of this encounter Results * BI MAMMOGRAM SCREENING WITH TOMOSYNTHESIS WITH CAD (BILATERAL) (11/16/2020 9:41 AM EDT) Anatomical Region Laterality Modality Breast Left, Breast Right, Breast Bilateral Bila teral Mammography 11/16/2020 2:23 PM EDT Impressions 11/16/2020 2:25 PM EDT No mammographic change indicative of malignancy. Routine screening is recommended. BI-RADS CATEGORY: 2 - Benign finding. DENSITY: There are scattered fibroglandular densities. Narrative 11/16/2020 2:25 PM EDT Bilateral full-field digital screening mammography is obtained and read in conjunction with computer-aided detection. Tomosynthesis as well as 2-D C view imaging of both breasts in two planes also obtained. Comparison made to multiple prior, most recent November 02, 2019, and most remote May 24, 2014. No dominant mass, architectural distortion, worrisome asymmetry, or suspicious calcification is identified. No skin or nipple finding of concern is appreciated. Chronic punctate calcification is stable as is nodular area asymmetrically to the inner left breast. Procedure Note Tank Ruiz MD - 11/16/2020 Bilateral full-field digital screening mammography is obtained and read inconjunction with computer-aided detection. Tomosynthesis as well as 2-D Cview imaging of both breasts in two planes also obtained. Comparison madeto multiple prior, most recent November 02, 2019, and most remote May. No dominant mass, architectural distortion, worrisome asymmetry, orsuspicious calcification is identified. No skin or nipple finding ofconcern is appreciated. Chronic punctate calcification is stable as isnodular area asymmetrically to the inner left breast. IMPRESSION: No mammographic change indicative of malignancy. Routine screening isrecommended. BI-RADS CATEGORY: 2 - Benign finding. DENSITY: There are scattered fibroglandular densities. Palmira Yee MD IMG MG EXAMS Final Result documented in this encounter Visit Diagnoses Diagnosis Breast screening Breast screening, unspecified Breast screening Breast screening, unspecified documented in this encounter Additional Health Concerns Infection Onset Date Last Indicated Resolved Time CoV-Exposed Comment:Recent close contact documented in the COVID-19 PCR/PRO order 10/25/2020 10/25/2020 11/09/2020 1:23 AM E DT documented as of this encounter Care Teams Rug Renovator Relationship Specialty Start Date End Date Gabriel Munoz DO PCP - General Internal Medicine 05/06/18 04/22/24 Gabriel Munoz DO [address] [facility] [place] [address] PCP - General Internal Medicine 04/23/24 Gabriel Munoz DO Internal Medicine 04/23/24 Palmira Yee MD [address] [place] [address] [address] [place] [address] [email or web address] Historical LMR Provider 12/22/16 Marlo Buchanan DO [address] [place] [address] Orthopedics & Sports Medicine, [facility] [place] [address] Historical LMR Provider 12/22/16 03/11/21 Jenny Pena, AMBULATORY NURSE 14 [facility] [address] [place] [address] [email or web address] Historical LMR Provider 12/22/16 03/11/21 Beny Bee MD [address] [address] Historical LMR Provider 12/22/16 03/11/21 Nathan Barcenas MD Historical LMR Provider 12/22/16 03/11/21 May Rendon, SERA Historical LMR Provider 12/22/16 03/11/21 Gabriel Munoz DO [address] [place] [address] Insurance Assigned Provider 12/12/19 01/12/23 documented as of this encounter Additional Source Comments The information contained in this document represents components of the legal health record. It is not the complete legal health record.[facility]
--- OUTSIDE RECORDS SUMMARY | 2024-11-18 15:32 | XMS_ITS | Clinical Summary ---
Author Organization [facility] Address [address] [place] [address] Phone Care Team Providers Care Lead Generation Marketing Manager Name Role Phone DemarcoGabriel hoover Primary Care Provider [phone] Gabriel Munoz DO Unavailable Palmira Yee MD Unavailable [phone] Allergies Active Allergy Reactions Criticality Noted Date Comments Cephalexin Unknown 12/04/2023 Other 05/30/2018 Pollen Oxycodone Nausea and/or Vomiting Low 04/08/2023 Pollen Extracts Unknown 12/04/2023 Medications No known medications Active Problems Problem Noted Date Diagnosed Date Acquired genu valgum of left knee 07/14/2020 Assessment & Plan (07/17/2020 8:23 PM EDT): May benefit from appropriate arch supports and consider custom-made shoes versus knee braces. Visit [facility] in [place] to explore her options. Primary osteoarthritis involving multiple joints 01/10/2017 Assessment & Plan (07/17/2020 8:21 PM EDT): Joint protection, energy conservation. Gentle, regular exercise routine. Avoid falls, injuries, overuse. Keep body weight in ideal range for her height. Well fitting, supportive shoes. Get either sheep's wool or soft corn doughnut shaped protection onto her R 2nd hammertoe corn. She may benefit from topical cream such as Arnica, Biofreeze, Aspercreme versus medicated patches such as salonpas, icy hot patch 2-3 times daily and if necessary at bedtime x 3 weeks. Complete uterovaginal prolapse 01/09/2017 Assessment & Plan (06/04/2021 9:19 AM EDT): Stable, continue routine maintenance. Assessment & Plan (08/27/2018 10:08 AM EDT): Stable, continue routine pessary maintenance. Assessment & Plan (02/05/2017 8:39 AM EST): New pessary placed with good support of prolapse. BOYD (generalized anxiety disorder) 01/09/2017 Osteoarthritis of both knees 01/09/2017 Elevated blood pressure read ing without diagnosis of hypertension 01/09/2017 Vaginal pessary present 01/09/2017 Overview (09/23/2024): #9 ring with support 08/17/24 #6 ring with support placed -> 2 1/2 short stem Gelhorn 09/21/24: #5 with with support Assessment & Plan (05/30/2020 10:35 AM EDT): Bleeding secondary to slight vaginal irritation. No need to leave pessary out at this time. Assessment & Plan (01/09/2017 10:16 PM EST): Lori has had the same pessary (#7 ring with support) for the past 10 years - on exam today, the device is due to be replaced. Additionally, she can accommodate a larger pessary which will provide her with better support. Will order a #8 and #9 with support then call patient when these are available to schedule fitting. 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 If elevated would refer to [facility] oncology If normal, she does have the option of repeating an ultrasound in a few months and observing is most likely this is benign. She would however preferred removal I discussed laparoscopic right salpingo-oophorectomy, would not do a cystectomy. She can also like to have the other ovary out of the of the fallopian tube out she can let us know at the preop Discussed general surgical risks of recovery issues that this typically same-day surgery. A year ago she had yet another joint replacement, I am not sure if she needs to see her primary head of time she is in good health on no medications She would prefer to have this with Dr. Yee who is her usual police captain so I will enter the case request thusly Fibrocystic disease of left breast 01/09/2017 08/10/2019 Generalized osteoarthritis 01/09/2017 0 08/10/2019 Tobacco abuse, in remission 08/10/2019 Overview (01/09/2017): quit 1991 Encounters Date Type Department Care Team Description 10/29/2024 7:36 AM EDT - 10/29/2024 11:59 PM EDT Hospital Encounter [facility] [address] [place] [id number] Jayda Harris PA Discharge Disposition: Home or Self Care 10/29/2024 Transcribe Orders [facility] [address] [place] [id number] Jayda Harris PA General medical exam (Primary Dx); Urinary tract infection without hematuria, site unspecified 09/21/2024 2:10 PM EDT Office Visit [facility] [address] [place] [address] Palmira Yee MD Vaginal pessary present (Primary Dx); Complete uterovaginal prolapse from Last 3 Months Immunizations Immunization Administration Dates Next Due Pneumococcal conjugate PCV13 05/11/2015 Tdap 05/11/2015 Family History Medical History Relation Comments Throat cancer Brother Hypertension Father Multiple sclerosis Mother Relation Status Comments Brother Father Mother Social History Tobacco Use Types Packs/Day Years Used Date Smoking Tobacco: Former Cigarettes 1.5 13 Smokeless Tobacco: Never Tobacco Cessation:Counseling Given: Not Answered Comments:Quit approx 1991 Alcohol Use Standard Drinks/Week Comments Yes 1 (1 standard drink = 0.6 oz pur e alcohol) daily Education Answer Date Recorded Are you interested in more education? Not on jordon e 06/29/2022 Are you concerned about learning? Not on file 06/29/2022 No 06/29/2022 No 06/29/2022 Digital Access Answer Date Recorded No 07/30/2022 No 07/30/2022 Reliable internet access at home? Not on file 07/30/2022 Device with a working camera? Not on file Comments No Sex and Gender Information Value Date Recorded Sex Assigned at Female 03/11/2017 9:38 AM EST Legal Sex Female 10:07 PM EDT Gender Identity Female 03/11/2017 9:38 AM EST Sexual Orientation Straight 03/11/2017 9: 38 AM EST Occupation Industry Job Start Date Job End Date retired Not on file Not on file Not on file Last Filed Vital Signs Vital Sign Reading Time Taken Comments Blood Pressure 144/66 09/21/2024 2:18 PM EDT Pulse 63 08/06/2024 3:17 PM EDT Temperature 36 C (96.8 F) 08/06/2024 3:17 PM EDT Respiratory Rate 21 08/06/2024 2:49 PM EDT Oxygen Saturation 96% 08/06/2024 3:17 PM EDT Inhaled Oxygen Concentration - - Weight 70.8 kg (156 lb) 07/31/2024 4:12 PM EDT Height 170.2 cm (5' 7 ) 07/31/2024 4:12 PM EDT Body Mass Index 24.43 07/31/2024 4:12 PM EDT Plan of Treatment Upcoming Encounters Date Type Department Care Team (Late st Contact Info) Description 12/07/2024 11:20 AM EDT Office Visit [facility] [address] [place] [address] Palmira Yee MD [address] [facility], [address] [place] [address] [email or web address] Health Maintenance Due Date Last Done Comments DEPRESSION SCREENING 1958 SMOKING Hx and SMOKELESS TOBACCO SCREENING 08/21/1959 ZOSTER VACCINES (1 of 2) 1996 PNEUMOCOCCAL VACCINES (50+ years) (2 of 2 - PPSV23) 05/10/2016 05/11/2015 RSV VACCINE (1 - 1-dose 75+ series) 2021 INFLUENZA VACCINE (#1) 2024 , 03/08/2022, 12/29/2019 COVID-19 VACCINE (6 - season) 2024 01/17/2023, 03/08/2022, 12/12/2020, Additional history exists Adult Td,Tdap Booster 05/10/2025 05/11/2015 LIPID PANEL 10/29/2029 10/29/2024, 10/02, 02/04/2020, Additional history exists OSTEOPOROSIS SCREENING INITIAL (ONE-TIME) Completed 10/10/2018 HEPATITIS C SCREENING Completed 10/15/2018, 019 HEPATITIS A VACCINES Aged Out No long er eligible based on patient's age to complete this topic HIB VACCINES Aged Out No longer eligi ble based on patient's age to complete this topic MENINGOCOCCAL VACCINES (ACWY) Aged Out No longer eligible based on patient's age to complete this topic MENINGOCOCCAL VACCINES (B) Aged Out N o longer eligible based on patient's age to complete this topic Medical Devices Implanted Type Area Engraver Pantograph Device Identifier Shelf Expiration Date Model / Serial / Lot Prosthetic Joint Prosthetic Joint Bilatera l: Knee Prosthetic Joint Prosthetic Joint Bilatera l: Hip Procedures Procedure Name Priority Date/Time Associated Diagnosis Comments URINE SEDIMENT Routine 10/29/2024 7:38 AM EDT URINALYSIS W/REFLEX URINE CULTURE Routine 10/29/2024 7:38 AM EDT General medical exam Urinary tract infection without hematuria, site unspecified CBC AND DIFFERENTIAL Routine 10/29/2024 7:38 AM EDT General medical exam Urinary tract infection without hematuria, site unspecified COMPREHENSIVE METABOLIC PANEL Routine 10/29/2024 7:38 AM EDT General medical exam Urinary tract infection without hematuria, site unspecified LIPID PANEL Routine 10/29/2024 7:38 AM EDT General medical exam Urinary tract infection without hematuria, site unspecified HEPATITIS C ANTIBODY, QUALITATIVE Routine 10/15/2018 7:51 AM EDT Routine general medical examination at a health care facility Avitaminosis D BD DXA SPINE AND HIP WITH FOREARM Routine 10/10/2018 9:24 AM EDT Decreased estrogen level from Last 3 Months or Most Recently Relevant to Health Maintenance Results * (ABNORMAL) Urinalysis w/reflex Urine Culture (10/29/2024 7:38 AM EDT) COLOR Yellow Yellow [facility] CLARITY Clear [facility] GLUCOSE Negative Negative [facility] BILI Negative Negative [facility] KETONES Negative Negative [facility] SPECIFIC GRAVITY 1.010 1.005 - 1.030 [facility] BLOOD Trace(A) Negative [facility] PH 6.5 5.0 - 8.0 [facility] Protein-UA Negative Negative [facility] NITRITE Negative Negative [facility] Leukocyte esterase, ur 1+(A) Negative [facility] Urine (Urine) 10/29/2024 7:3 8 AM EDT 10/29/2024 7:44 AM EDT us Jayda CONKLIN URINE ORDERABLES Final Resu lt [address] [address] * (ABNORMAL) Urine sediment (10/29/2024 7:38 AM EDT) WBC 0-4(A) NONE SEEN /hpf [facility] RBC 3-5(A) NONE SEEN /hpf [facility] URINE EPITHELIAL 0-4(A) NONE SEEN [facility] MUCUS Trace(A) NONE SEEN /hpf [facility] BACTERIA Trace(A) NONE SEEN /hpf [facility] 10/29/2024 7:38 AM EDT 10/29/2024 7:44 AM EDT Jayda CONKLIN URINE ORDERABLES Final Resu lt Performing Organization Address City/[facility]/ZIP Co de Phone Number [address] [address] * Comprehensive metabolic panel (10/29/2024 7:38 AM EDT) SODIUM 140 133 - 146 mmol/L [facility] POTASSIUM 4.5 3.3 - 5.1 mmol/L [facility] CHLORIDE 103 96 - 108 mmol/L [facility] CO2 26 21 - 35 mmol/L [facility] BUN 19 6 - 19 mg/dL [facility] CREATININE 0.70 0.5 - 1.5 mg/dL [facility] GLUCOSE 96 70 - 99 mg/dL [facility] ALBUMIN 4.2 3.9 - 4.8 g/dL [facility] TOTAL PROTEIN 6.9 6.5 - 8.0 g/dL [facility] CALCIUM 9.5 8.4 - 10.3 mg/dL [facility] ALKALINE PHOSPHATASE 81 39 - 117 U/L [facility] TOTAL BILIRUBIN 0.4 0.0 - 1.2 mg/dL [facility] AST 25 0 - 37 U/L [facility] ALT 15 0 - 40 U/L [facility] GLOBULIN 2.7 1 - 4.8 g/dL [facility] EGFR 88 >59 mL/min/1.7 3m2 [facility] Comment:Estimated glomerular filtration rate calculated using the CKD-EPI refit equation. ANION GAP 16 10 - 20 mmol/L [facility] Blood 10/29/2024 7:38 AM EDT 10/29/2024 7:44 AM EDT us Jayda CONKLIN LAB BLOOD ORDERABLES Final Result Performing Organization Address [facility]/ZIP Co de Phone Number [address] [address] * (ABNORMAL) CBC and differential (10/29/2024 7:38 AM EDT) WBC 4.43 4.00 - 11.00 K/uL [facility] RBC 4.13 4.00 - 5.20 M/uL [facility] HGB 13.2 12.0 - 16.0 g/dL [facility] HCT 39.8 36.0 - 46.0 % [facility] PLT 321 150 - 450 K/uL [facility] MCV 96.4 80.0 - 100.0 fL [facility] MCH 32.0(H) 27.0 - 31.0 pg [facility] MCHC 33.2 32.0 - 36.0 g/dL [facility] RDW 12.9 11.5 - 14.5 % [facility] MPV 10.1 8.4 - 12.0 fL [facility] NRBC 0.00 0.00 /100 WBCs [facility] ABSOLUTE NRBC 0.00 0.00 K/uL [facility] DIFF METHOD Auto [facility] NEUTS 61.2 48.0 - 76.0 % [facility] LYMPHS 28.2 18.0 - 41.0 % [facility] MONOS 7.0 4.0 - 11.0 % [facility] EOS 2.7 0.0 - 5.0 % [facility] BASOS 0.7 0.0 - 1.5 % [facility] Granulocytes, immature (%) 0.2 0.0 - 0.9 % [facility] ABSOLUTE NEUTS 2.71 1.92 - 7.60 K/uL [facility] ABSOLUTE LYMPHS 1.25 0.72 - 4.10 K/uL [facility] ABSOLUTE MONOS 0.31 0.16 - 1.10 K/uL [facility] ABSOLUTE EOS 0.12 0.00 - 0.50 K/uL [facility] ABSOLUTE BASOS 0.03 0.00 - 0.15 K/uL [facility] Granulocytes, immature 0.01 0.00 - 0.09 K/uL [facility] Blood 10/29/2024 7:38 AM EDT 10/29/2024 7:44 AM EDT us Jayda CONKLIN LAB BLOOD ORDERABLES Final Result Performing Organization Address City/[facility]/ZIP Co de Phone Number [address] [address] * (ABNORMAL) Lipid panel (10/29/2024 7:38 AM EDT) HDL 86 mg/dL [facility] Comment: Interpretation <40 mg/dL: Low HDL cholesterol (major risk factor for CHD) Greater than or equal to 60 mg/dL: High HDL cholesterol ( negative risk factor for CHD) HDL - cholesterol is affected by a number of factors, e.g. smoking, excerise, hormones, sex and age. CHOLESTEROL 217 0 - 240 mg/dL [facility] TRIGLYCERIDES 74 30 - 160 mg/dL [facility] LDL 116 50 - 129 mg/dL [facility] Comment: LDL levels in terms of risk for coronary heart disease: <100 mg/dL: Optimal 100-129 mg/dL: Near or above optimal 130-159 mg/dL: Borderline high 160-189 mg/dL: High >190 mg/dL: Very High CARDIAC RISK RATIO 2.5(L) 3.3 - 4.4 [facility] Blood 10/29/2024 7:38 AM EDT 10/29/2024 7:44 AM EDT us Jayda CONKLIN LAB BLOOD ORDERABLES Final Result Performing Organization Address [facility] Co de Phone Number [address] [address] * Hepatitis C antibody, qualitative (10/15/2018 7:51 AM EDT) HCV NON-REACTIV E NON-REACTI VE [facility] Blood 10/15/2018 7:51 AM EDT 10/15/2018 8:26 AM EDT Juliette Arredondo PA-C LAB BLOOD ORDERABLES Final R esult Performing Organization Address City/[facility]/ZIP Co de Phone Number [address] [address] * BD DXA SPINE AND HIP WITH FOREARM (10/10/2018 9:24 AM EDT) Anatomical Region Laterality Modality Bone Density Bone Density 10/10/2018 9:31 AM EDT Impressions 10/10/2018 9:33 AM EDT Normal bone density. Increase in bone density in the lumbar spine and decrease in bone density in the right hip and left forearm since the prior exam in 2004. POS - [id number] Narrative 10/10/2018 9:33 AM EDT COMPARISON: 12/18/2004. BONE DENSITY FINDINGS: History: This is a 73-year-old postmenopausal female. Evaluation of the lumbar spine, hips and left forearm was performed and felt to be technically adequate. Total bone mineral density in the L1, L2 & L4 vertebral bodies was calculated at 1.744 gm/cm2 with a T-score of 6.5 falling within the WHO classification of normal. Z-score of 8.7.8.1% increase in bone density which is statistically significant. Total bone mineral density in the right hip was calculated at 1.150 gm/cm2 with a T-score of 1.7 falling within the WHO classification of normal. Z-score of 3.3. 3.2% decrease in bone density which is statistically significant. Total bone mineral density in the left hip was calculated at 1.153 gm/cm2 with a T-score of 1.7 falling within the WHO classification of normal. Z-score of 3.3. Total bone mineral density in the left forearm was calculated at 0.623 gm/cm2 with a T-score of 1.2 falling within the WHO classification of normal. Z-score of 3.5. 1.8% decrease in bone density which is statistically significant. Procedure Note Marcellus Pederson MD - 10/10/2018 COMPARISON: 12/18/2004. BONE DENSITY FINDINGS: History: This is a 73-year-old postmenopausal female. Evaluation of the lumbar spine, hips and left forearm was performed andfelt to be technically adequate. Total bone mineral density in the L1, L2 & L4 vertebral bodies wascalculated at 1.744 gm/cm2 with a T-score of 6.5 falling within the WHOclassification of normal. Z- score of 8.7.8.1% increase in bone densitywhich is statistically significant. Total bone mineral density in the right hip was calculated at 1.150 gm/jw3gonz a T-score of 1.7 falling within the WHO classification of normal.Z-score of 3.3. 3.2% decrease in bone density which is statisticallysignificant. Total bone mineral density in the left hip was calculated at 1.153 gm/hp8twbg a T-score of 1.7 falling within the WHO classification of normal.Z-score of 3.3. Total bone mineral density in the left forearm was calculated at 0.623gm/cm2 with a T-score of 1.2 falling within the WHO classification ofnormal. Z-score of 3.5. 1.8% decrease in bone density which isstatistically significant. IMPRESSION: Normal bone density. Increase in bone density in the lumbar spine anddecrease in bone density in the right hip and left forearm since the priorexam in 2004. POS - [id number] June Maria Elena DOVE IMG BD BONE DENSITY DEXA Fin al Result from Last 3 Months or Most Recently Relevant to Health Maintenance Insurance MEDICARE PART A & B [facility] [place] Address: [facility] [id number] [place] [address] MEDICARE PART A & B Member Subscriber Plan / Payer (Ef fective 2011-Present) Name:Agnes Ricardo Member ID:[id number] Relation to Subscriber:Self Name:Agnes Ricardo Subscriber ID:[id number] Payer ID:[id number] Group ID:Not on file Type:Medicare Address: [email or web address] [address] [address] [facility] [place] [facility] [id number] [address] [place] [id number] MEDICARE PART A & B MEDICARE PART A & B MEDICARE PART A & B [facility] [place] [facility] [id number] [place] [id number] MEDICARE PART A & B MEDICARE PART A & B MEDICARE ENHANCE SUPPLEMENT MEDICARE PART A & B [facility] [place]: [facility] [id number] [place] [id number] MEDICARE PART A & B [facility] [place] Address: [facility] [id number] [place] [id number] Advance Directives For more information, please contact: [phone] (9AM - 5PM [facility] [place], Saturday-Saturday) * Full Code (Latest Code Status on File) Date Activated Date Inactivated Comments 08/06/2024 10:29 AM Question Answer Comments Code Status Confirmed With: Patient Care Teams Lead Generation Marketing Manager Relationship Specialty Start Date End Date Gabriel Munoz DO [address] [place] [address] [email or web address] PCP - General Internal Medicine 04/23/24 Gabriel Munoz DO [address] [place] [address] [email or web address] Internal Medicine 04/23/24 Palmira Yee MD [address] [place] [phone] [email or web address] Historical LMR Provider 12/22/16 Additional Source Comments The information contained in this document represents components of the legal health record. It is not the complete legal health record.[facility]
--- OUTSIDE RECORDS SUMMARY | 2024-11-18 15:32 | XMS_ITS | Encounter Summary ---
Author Organization [facility] Address [address] [place] [address] Phone Care Team Providers Care Glass Designer Name Role Phone Gabriel Munoz Primary Care Provider [phone] Bigda, Gabriel Gleason DO Primary Care Provider [phone] DemarcodaGabriel DO Unavailable Palmira Yee MD Unavailable [phone] Marlo Buchanan DO Unavailable Jenny Pena HULL INSPECTOR Unavailable [phone] Beny Bee MD Unavailable Nathan Barcenas MD Unavailable Unavailable May Rendon RDCS Unavailable [email or web address] Gabriel Munoz DO Unavailable Encounter Details Date Type Department Care Team (Latest Contact Info) Description 03/01/2021 Transcribe Orders Virtual Department 30 [place] [address] Jayda Harris PA [address] [place] [address] [place] [address] Bilateral primary osteoarthritis of knee (Primary Dx) Social History Tobacco Use Types [...] Visit [facility] 22 [place] [address] Palmira Yee MD 22 [facility], [address] [place] [address] [email or web address] documented as of this encounter Results * XR KNEE 4 OR MORE VIEWS (BILATERAL) (03/08/2021 10:38 AM EST) Anatomical Region Laterality Modality Knee Bilateral, Knee Right, Knee Left Computed Radiography 03/08/2021 11:0 3 AM EST Impressions 03/08/2021 11:05 AM EST Severe advanced osteoarthritis most pronounced in the medial and patellofemoral compartments without traumatic or destructive skeletal lesions apparent. POS - [id number] Narrative 03/08/2021 11:05 AM EST COMPARISON: None FINDINGS: Upright AP, tunnel, lateral, and specialized patellar views of both knees were obtained. There are severe advanced osteoarthritic changes bilaterally, most pronounced in the medial compartments where there is a gwdy-ot-nahz appearance with sclerosis and remodeling of the articular surfaces, and prominent diffuse periarticular spurring most pronounced along the medial and posterior aspects of the knees. Additional patellar spurring is present. No definitive suprapatellar effusion. No definitive loose body or destructive bony abnormality. Minimal bilateral varus deformities. Procedure Note Emeka Kat MD - 03/08/2021 COMPARISON: None FINDINGS: Upright AP, tunnel, lateral, and specialized patellar views of both kneeswere obtained. There are severe advanced osteoarthritic changesbilaterally, most pronounced in the medial compartments where there is kgfmm-cb-yulm appearance with sclerosis and remodeling of the articularsurfaces, and prominent diffuse periarticular spurring most pronouncedalong the medial and posterior aspects of the knees. Additional patellarspurring is present. No definitive suprapatellar effusion. No definitiveloose body or destructive bony abnormality. Minimal bilateral varusdeformities. IMPRESSION: Severe advanced osteoarthritis most pronounced in the medial andpatellofemoral compartments without traumatic or destructive skeletallesions apparent. POS - [id number] us Jayda CONKLIN IMG XR LOWER EXTREMITY Manju l Result documented in this encounter Visit Diagnoses Diagnosis Bilateral primary osteoarthritis of knee- Primary Bilateral primary osteoarthritis of knee documented in this encounter Care Teams Glass Designer Relationship Specialty Start Date End Date Gabriel Munoz DO PCP - General Internal Medicine 05/06/18 04/22/24 Gabriel Munoz DO [address] [place] [address] [place] [address] PCP - General Internal Medicine 04/23/24 Gabriel Munoz DO Internal Medicine 04/23/24 Palmira Yee MD [address] [place] [address] [address] [place] [address] Historical LMR Provider 12/22/16 Marlo Buchanan DO [address] [place] [address] [facility], [place] [address] Historical LMR Provider 12/22/16 03/11/21 Jenny Pena, KATHRYN [address] [place] [address] [place] [address] [email or web address] Historical LMR Provider 12/22/16 03/11/21 Beny Bee MD [address] [place] [address] [place] [address] [email or web address] Historical LMR Provider 12/22/16 03/11/21 Nathan Barcenas MD Historical LMR Provider 12/22/16 03/11/21 May Rendon, RDCS Historical LMR Provider 12/22/16 03/11/21 Gabriel Munoz DO [address] [place] [address] [email or web address] Insurance Assigned Provider 12/12/19 01/12/23 documented as of this encounter Additional Source Comments The information contained in this document represents components of the legal health record. It is not the complete legal health record.[facility]
--- OUTSIDE RECORDS SUMMARY | 2024-11-18 15:32 | XMS_ITS | Encounter Summary ---
Author Organization [facility] Address [address] [place] [address] Phone Care Team Providers Care Refuse And Recycling Worker Name Role Phone Gabriel Munoz DO Primary Care Provider [phone] Bigda, Gabriel Rosibel DO Primary Care Provider [phone] Bigda, Gabriel Gleason DO Unavailable Palmira Yee MD Unavailable [phone] Bigda, Gabriel Gleason DO Unavailable Encounter Details Date Type Department Care Team (Late st Contact Info) Description 11/22/2021 Transcribe Orders Virtual Department 30 [place] [address] Tammy, Gabriel Gleason, DO [address] [place] [address] Breast screening (Primary Dx) Social History Tobacco Use Types [...] Visit [facility] [address] [place] [address] Palmira Yee MD 22 [facility], [address] [place] [address] [email or web address] documented as of this encounter Results * BI MAMMOGRAM SCREENING WITH TOMOSYNTHESIS WITH CAD (BILATERAL) (12/06/2021 9:33 AM EDT) Anatomical Region Laterality Modality Breast Left, Breast Right, Breast Bilateral Bila teral Mammography 12/06/2021 6:09 PM EDT Impressions 12/06/2021 6:24 PM EDT No mammographic evidence of malignancy. Recommend routine annual surveillance. BI-RADS CATEGORY: 2 - Benign finding. DENSITY: There are scattered fibroglandular densities. Narrative 12/06/2021 6:24 PM EDT 76-year-old female. Comparison made to previous on 11/16/2020 and as far back as 03/16/2003. Interpretation made in conjunction with computer-aided detection and tomosynthesis. There are scattered areas of fibroglandular density. Chronic bilateral microcalcifications and left breast nodularity. There are no suspicious masses, areas of architectural distortion, or suspicious clusters of microcalcifications. Procedure Note James Dee MD - 12/06/2021 76-year-old female. Comparison made to previous on 11/16/2020 and as farback as 03/16/2003. Interpretation made in conjunction with computer-aideddetection and tomosynthesis. There are scattered areas of fibroglandular density. Chronic bilateralmicrocalcifications and left breast nodularity. There are no suspicious masses, areas of architectural distortion, orsuspicious clusters of microcalcifications. IMPRESSION: No mammographic evidence of malignancy. Recommend routine annualsurveillance. BI-RADS CATEGORY: 2 - Benign finding. DENSITY: There are scattered fibroglandular densities. Gabriel Gleason Tammy SLATER IMG MG EXAMS Final Result documented in this encounter Visit Diagnoses Diagnosis Breast screening- Primary Breast screening, unspecified Breast screening Breast screening, unspecified documented in this encounter Care Teams Refuse And Recycling Worker Relationship Specialty Start Date End Date Gabriel Munoz DO PCP - General Internal Medicine 05/06/18 04/22/24 Gabriel Munoz DO [address] [place] [address] PCP - General Internal Medicine 04/23/24 Gabriel Munoz DO Internal Medicine 04/23/24 Palmira Yee MD [address] [place] [address] Historical LMR Provider 12/22/16 Gabriel Munoz DO 179 [place] [address] Insurance Assigned Provider 12/12/19 01/12/23 documented as of this encounter Additional Source Comments The information contained in this document represents components of the legal health record. It is not the complete legal health record.[facility]
--- OUTSIDE RECORDS SUMMARY | 2024-11-18 15:33 | XMS_ITS | Encounter Summary ---
Author Organization [facility] Address [address] [place] [address] Phone Care Team Providers Care Customer Experience Analyst Name Role Phone Tammy Gabriel Gleason DO Primary Care Provider [phone] Bigda, Gabriel Gleason DO Primary Care Provider [phone] Demarcoda, Gabriel Gleason DO Unavailable Palmira eYe MD Unavailable Marlo Buchanan DO Unavailable [phone] Jenny Pena HERBARIUM WORKER Unavailable Beny Bee MD Unavailable [phone] Nathan Barcenas MD Unavailable Unavailable May Rendon RDCS Unavailable [email or web address] Beny Bee MD Unavailable BigGabriel hoover DO Unavailable Encounter Details Date Type Department Care Team (Latest Contact Info) Description 07/21/2018 Transcribe Orders Virtual Department 30 [place] [address] Juliette Arredondo PA-C [address] [place] [address] Decreased estrogen level (Primary Dx) Social History Tobacco Use Types [...] Visit [facility] [address] [place] [address] Palmira Yee MD 22 [facility], [address] [place] [address] [email or web address] documented as of this encounter Results * BD DXA SPINE AND HIP WITH FOREARM (10/10/2018 9:24 AM EDT) Anatomical Region Laterality Modality Bone Density Bone Density 10/10/2018 9:31 AM EDT Impressions 10/10/2018 9:33 AM EDT Normal bone density. Increase in bone density in the lumbar spine and decrease in bone density in the right hip and left forearm since the prior exam in 2004. POS - [id number] Narrative 10/10/2018 9:33 AM EDT COMPARISON: 12/18/2004. [...] the right hip was calculated at 1.150 gm/rw1yyyl a T-score of 1.7 falling within the WHO classification of normal.Z-score of 3.3. 3.2% decrease in bone density which is statisticallysignificant. Total bone mineral density in the left hip was calculated at 1.153 gm/uv8cshd a T-score of 1.7 falling within the [...] since the priorexam in 2004. POS - [id number] June Maria Elena DOVE IMG BD BONE DENSITY DEXA Fin al Result documented in this encounter Visit Diagnoses Diagnosis Decreased estrogen level- Primary Decreased estrogen level documented in this encounter Additional Health Concerns Infection Onset Date Last Indicated Resolved Time CoV-Exposed Comment:Recent close contact documented in the COVID-19 PCR/PRO order 10/25/2020 10/25/2020 11/09/2020 1:23 AM E DT documented as of this encounter Care Teams Customer Experience Analyst Relationship Specialty Start Date End Date Gabriel Munoz DO PCP - General Internal Medicine 05/06/18 04/22/24 Gabriel Munoz DO [address] [place] [address] PCP - General Internal Medicine 04/23/24 Gabriel Munoz DO Internal Medicine 04/23/24 Palmira Yee MD [address] [place] [address] [address] [place] [address] [email or web address] Historical LMR Provider 12/22/16 Marlo Buchanan DO [address] [place] [address] [facility] [place] [address] Historical LMR Provider 12/22/16 03/11/21 Jenny Pena CNP [address] [place] [address] [place] [address] [email or web address] Historical LMR Provider 12/22/16 03/11/21 Beny Bee MD [address] [place] [address] [place] [address] [email or web address] Historical LMR Provider 12/22/16 03/11/21 Nathan Barcenas MD Historical LMR Provider 12/22/16 03/11/21 May Rendon, RDCS Historical LMR Provider 12/22/16 03/11/21 Beny Bee MD 14 [facility] [address] [place] [address] [email or web address] Insurance Assigned Provider 06/01/17 04/03/19 Gabriel Munoz DO [address] [place] [address] [email or web address] Insurance Assigned Provider 12/12/19 01/12/23 documented as of this encounter Additional Source Comments The information contained in this document represents components of the legal health record. It is not the complete legal health record.[facility]
--- OUTSIDE RECORDS SUMMARY | 2024-11-18 15:33 | XMS_ITS | Encounter Summary ---
Author Organization [facility] Address [address] [place] [address] Phone Care Team Providers Care Line Tender Flakeboard Name Role Phone Demarcosneha Gabriel Gleason DO Primary Care Provider [phone] Bigda, Gabriel Gleason DO Primary Care Provider [phone] Bigda, Gabriel Gleason DO Unavailable Palmira Yee MD Unavailable Marlo Buchanan DO Unavailable [phone] Jenny Pena MANAGER CORPORATE COMMUNICATIONS Unavailable Beny Bee MD Unavailable [phone] Nathan Barcenas MD Unavailable Unavailable May Rendon RDCS Unavailable [email or web address] Beny Bee MD Unavailable [phone] BigGabriel hoover DO Unavailable Encounter Details Date Type Department Care Team (Late st Contact Info) Description 09/11/2018 Ancillary Orders [facility] 10 [place], [place] [phone] Palmira Yee MD 22 [facility], [address] [place], [place] [id number] [email or web address] Breast screening Social History Tobacco Use Types [...] Visit [facility] [address] [place] [address] Palmira Yee MD 22 [facility], [address] [place] [address] [email or web address] documented as of this encounter Results * BI MAMMOGRAM SCREENING WITH TOMOSYNTHESIS WITH CAD (BILATERAL) (10/06/2018 8:54 AM EDT) Anatomical Region Laterality Modality Breast Left, Breast Right, Breast Bilateral Bila teral Mammography 10/06/2018 11:5 1 AM EDT Impressions 10/06/2018 11:56 AM EDT BILATERAL BREASTS: Negative, no evidence of malignancy. Normal interval follow- up is recommended in 12 months. Bi-RADS: BI-RADS CATEGORY: 1 - Negative. DENSITY: The breast tissue is heterogeneously dense, an appearance which lowers the sensitivity of mammography. POS - CDHMAMA Narrative 10/06/2018 11:56 AM EDT STUDY: Bilateral screening mammography with tomosynthesis and CAD TECHNIQUE: Bilateral full-field digital screening mammography is obtained and read in conjunction with computer-aided detection. Tomosynthesis as well as 2-D C view imaging were obtained. COMPARISON: Comparison made to multiple prior, most recent October 01, 2017, and most remote May 15, 2012. BREAST COMPOSITION: The breasts are heterogeneously dense, which may obscure small masses. BILATERAL BREASTS: No significant masses, calcifications or other abnormalities are seen. Procedure Note Ian Holliday MD - 10/06/2018 STUDY: Bilateral screening mammography with tomosynthesis and CAD TECHNIQUE: Bilateral full-field digital screening mammography is obtainedand read in conjunction with computer-aided detection. Tomosynthesis aswell as 2-D C view imaging were obtained. COMPARISON: Comparison made to multiple prior, most recent October 01, 2017,and most remote May 15, 2012. BREAST COMPOSITION: The breasts are heterogeneously dense, which mayobscure small masses. BILATERAL BREASTS: No significant masses, calcifications or otherabnormalities are seen. IMPRESSION: BILATERAL BREASTS: Negative, no evidence of malignancy. Normal intervalfollow-up is recommended in 12 months. Bi-RADS: BI-RADS CATEGORY: 1 - Negative. DENSITY: The breast tissue is heterogeneously dense, an appearance whichlowers the sensitivity of mammography. POS - CDHMAMA Palmira Yee MD IMG MG EXAMS Final Result documented in this encounter Visit Diagnoses Diagnosis Breast screening Breast screening, unspecified Breast screening Breast screening, unspecified documented in this encounter Additional Health Concerns Infection Onset Date Last Indicated Resolved Time CoV-Exposed Comment:Recent close contact documented in the COVID-19 PCR/PRO order 10/25/2020 10/25/2020 11/09/2020 1:23 AM E DT documented as of this encounter Care Teams Line Tender Flakeboard Relationship Specialty Start Date End Date Gabriel Munoz DO [email or web address] PCP - General Internal Medicine 05/06/18 04/22/24 Gabriel Munoz DO [address] [place] [address] PCP - General Internal Medicine 04/23/24 Gabriel Munoz DO Internal Medicine 04/23/24 Palmira Yee MD [address] [place] [address] [address] [place] [address] Historical LMR Provider 12/22/16 Marlo Buchanan DO [address] [place] [address] [facility], [place] [address] Historical LMR Provider 12/22/16 03/11/21 Jenny Pena CNP [address] [place] [address] [place] [address] [email or web address] Historical LMR Provider 12/22/16 03/11/21 Beny Bee MD [address] [place] [address] [place] [address] Historical LMR Provider 12/22/16 03/11/21 Nathan Barcenas MD Historical LMR Provider 12/22/16 03/11/21 May Rendon, [facility] Historical LMR Provider 12/22/16 03/11/21 Beny Bee MD [address] [place] [address] Insurance Assigned Provider 06/01/17 04/03/19 Gabriel Munoz DO [address] [place] [address] Insurance Assigned Provider 12/12/19 01/12/23 documented as of this encounter Additional Source Comments The information contained in this document represents components of the legal health record. It is not the complete legal health record.[facility]
--- OUTSIDE RECORDS SUMMARY | 2024-11-18 15:33 | XMS_ITS | Encounter Summary ---
Author Organization [facility] Address [address] [place] [address] Phone Care Team Providers Care Karate Black Belt Name Role Phone Beny Bee MD Primary Care Provider [phone] BigGabriel hoover DO Primary Care Provider [phone] Bigda, Gabriel Gleason DO Primary Care Provider [phone] BigdaGabriel DO Unavailable Palmira Yee MD Unavailable [phone] Marlo Buchanan DO Unavailable [phone] Jenny Pena STRANNER Unavailable [phone] Beny Bee MD Unavailable [phone] Nathan Barcenas MD Unavailable Unavailable May Rendon RD Unavailable [email or web address] Beny Bee MD Unavailable [phone] Gabriel Munoz DO Unavailable Encounter Details Date Type Department Care Team (Late st Contact Info) Description 08/14/2017 Ancillary Orders [facility] Internal Medicine 14 [facility] [address] [place], [place] [phone] Beny Bee MD 14 [facility] [address] [place], [place] [id number] [email or web address] Breast screening Social History Tobacco Use Types [...] Office Visit [facility] [address] [place] [address] [place] [address] Palmira Yee MD 22 [facility], [address] [place] [address] [email or web address] documented as of this encounter Results * BI MAMMOGRAM SCREENING WITH TOMOSYNTHESIS WITH CAD (BILATERAL) (10/01/2017 12:40 PM EDT) Anatomical Region Laterality Modality Breast Left, Breast Right, Breast Bilateral Bila teral Mammography 10/01/2017 12:4 8 PM EDT Impressions 10/01/2017 12:50 PM EDT Stable appearance relative to prior imaging. No findings suggestive of malignancy are seen. BI-RADS CATEGORY: 2 - Benign finding. DENSITY: There are scattered fibroglandular densities. POS - [id number] Narrative 10/01/2017 12:50 PM EDT Full-field digital mammography is obtained with computer-aided detection. Comparison with prior imaging from 08/15/2016 is made with older imaging dating back as far as 05/07/2011 also reviewed. There is scattered fibroglandular density evident in the breasts. In addition to 2-D C view imaging, tomosynthesis images are obtained in two projections of each breast. A focal nodular density in the medial left breast is unchanged. Minor scattered punctate calcifications are also unchanged bilaterally.. No dominant soft tissue mass of concern, suspicious cluster of calcifications, significant interval skin changes, or architectural distortion is identified. Procedure Note Agustin Cox MD - 10/01/2017 Full-field digital mammography is obtained with computer-aided detection.Comparison with prior imaging from 08/15/2016 is made with older imagingdating back as far as 05/07/2011 also reviewed. There is scattered fibroglandular density evident in the breasts. Inaddition to 2-D C view imaging, tomosynthesis images are obtained in twoprojections of each breast. A focal nodular density in the medial left breast is unchanged. Minorscattered punctate calcifications are also unchanged bilaterally.. Nodominant soft tissue mass of concern, suspicious cluster ofcalcifications, significant interval skin changes, or architecturaldistortion is identified. IMPRESSION: Stable appearance relative to prior imaging. No findings suggestive ofmalignancy are seen. BI-RADS CATEGORY: 2 - Benign finding. DENSITY: There are scattered fibroglandular densities. POS - [id number] Beny Bee MD IMG MG EXAMS Final Result documented in this encounter Visit Diagnoses Diagnosis Breast screening Breast screening, unspecified Breast screening Breast screening, unspecified documented in this encounter Additional Health Concerns Infection Onset Date Last Indicated Resolved Time CoV-Exposed Comment:Recent close contact documented in the COVID-19 PCR/PRO order 10/25/2020 10/25/2020 11/09/2020 1:23 AM E DT documented as of this encounter Care Teams Karate Black Belt Relationship Specialty Start Date End Date Beny Bee MD [address] [place] [address] [address] [place] [address] PCP - General Internal Medicine 01/10/17 05/05/18 Gabriel Munoz DO [address] [place] [address] [place] [address] PCP - General Internal Medicine 05/06/18 04/22/24 Gabriel Munoz DO [address] [place] [address] [email or web address] PCP - General Internal Medicine 04/23/24 Gabriel Munoz DO [address] [place] [address] [email or web address] Internal Medicine 04/23/24 Palmira Yee MD [address] [place] [address] [address] [place] [address] Historical LMR Provider 12/22/16 Marlo Buchanan DO [address] [place] [address] [facility], [place] [address] Historical LMR Provider 12/22/16 03/11/21 Jenny Pena, KATHRYN [address] [place] [address] [email or web address] Historical LMR Provider 12/22/16 03/11/21 Beny Bee MD [address] [place] [address] [place] [address] Historical LMR Provider 12/22/16 03/11/21 Nathan Barcenas MD Historical LMR Provider 12/22/16 03/11/21 May Rendon, RDCS Historical LMR Provider 12/22/16 03/11/21 Beny Bee MD 14 [facility] [address] [place] [address] [email or web address] Insurance Assigned Provider 06/01/17 04/03/19 Gabriel Munoz DO [address] [place] [address] [email or web address] Insurance Assigned Provider 12/12/19 01/12/23 documented as of this encounter Additional Source Comments The information contained in this document represents components of the legal health record. It is not the complete legal health record.[facility]
--- OUTSIDE RECORDS SUMMARY | 2024-11-18 15:33 | XMS_ITS | Encounter Summary ---
Author Organization [facility] Address [address] [place] [address] Phone Care Team Providers Care Electrical Prospecting Engineer Name Role Phone Gabriel Munoz DO Primary Care Provider [phone] Gabriel Munoz DO Primary Care Provider [phone] Gabriel Munoz DO Unavailable Palmira Yee MD Unavailable Encounter Details Date Type Department Care Team ([facility] st Contact Info) Description 10/29/2023 Transcribe Orders Virtual Department [address] [place] [address] Gabriel Munoz DO 179 [facility] [place] [address] [place] [address] [email or web address] Breast screening (Primary Dx) Social History Tobacco [...] Visit [facility] [address] [place] [address] Palmira Yee MD 22 [facility], [address] [place] [address] [email or web address] documented as of this encounter Results * BI MAMMOGRAM SCREENING WITH TOMOSYNTHESIS WITH CAD (BILATERAL) (02/28/2024 9:43 AM EST) Anatomical Region Laterality Modality Breast Left, Breast Right, Breast Bilateral Bila teral Mammography 02/28/2024 11:3 6 AM EST Impressions 02/28/2024 11:36 AM EST No mammographic evidence of malignancy in either breast. Annual screening mammography is recommended. BI-RADS 1 NEGATIVE The patient will be notified of the results and recommendations. Narrative 02/28/2024 11:36 AM EST BI MAMMOGRAM SCREENING WITH TOMOSYNTHESIS WITH CAD (BILATERAL) Additional patient information: Screening. COMPARISON: Comparison is made with relevant prior imaging. Breast composition: There are scattered areas of fibroglandular density. FINDINGS: No abnormal masses, suspicious calcifications, or other significant findings are identified mammographically in either breast. Procedure Note Jenny Garibay MD - 02/28/2024 BI MAMMOGRAM SCREENING WITH TOMOSYNTHESIS WITH CAD (BILATERAL) Additional patient information: Screening. COMPARISON: Comparison is made with relevant prior imaging. Breast composition: There are scattered areas of fibroglandular density. FINDINGS: No abnormal masses, suspicious calcifications, or other significantfindings are identified mammographically in either breast. IMPRESSION: No mammographic evidence of malignancy in either breast. Annual screening mammography is recommended. BI-RADS 1 NEGATIVE The patient will be notified of the results and recommendations. us Provider Not In System PhD IMG MG EXAMS Final Result documented in this encounter Visit Diagnoses Diagnosis Breast screening- Primary Breast screening, unspecified Breast screening Breast screening, unspecified documented in this encounter Care Teams Electrical Prospecting Engineer Relationship Specialty Start Date End Date Gabriel Munoz DO PCP - General Internal Medicine 05/06/18 04/22/24 Gabriel Munoz DO 179 [facility] [place] [address] PCP - General Internal Medicine 04/23/24 Gabriel Munoz DO Internal Medicine 04/23/24 Palmira Yee MD [address] [place] [address] [address] [place] [address] [email or web address] Historical LMR Provider 12/22/16 documented as of this encounter Additional Source Comments The information contained in this document represents components of the legal health record. It is not the complete legal health record.[facility]
--- OUTSIDE RECORDS SUMMARY | 2024-11-18 15:33 | XMS_ITS | Encounter Summary ---
Author Organization [facility] Address [address] [place] [address] Phone Care Team Providers Care Rocket Propellant Plant Supervisor Name Role Phone Gabriel Munoz Primary Care Provider [phone] Tammy Gabriel Rosibel DO Unavailable Palmira Yee MD Unavailable [phone] Encounter Details Date Type Department Care Team (Latest Contact Info) Description 05/19/2024 Transcribe Orders Virtual Department 30 [place] [address] Jayda Harris PA 6 [facility] [place] [address] [place] [address] Unspecified ovarian cyst, right side (Primary Dx) Social History Tobacco Use Types [...] Visit [facility] [address] [place] [address] Palmira Yee MD 22 [facility], [address] [place] [address] [email or web address] documented as of this encounter Results * US PELVIS TRANSABDOMINAL PLUS TRANSVAGINAL (05/21/2024 4:38 PM EDT) Anatomical Region Laterality Modality Pelvis, Uterus/Adnexa Ultrasound 05/21/2024 4:49 PM EDT Impressions 05/21/2024 6:24 PM EDT * 7.5 cm right adnexal cyst, without internal nodularity demonstrated. * Left ovary is not seen. *Small volume intracavitary fluid, as can be seen with cervical stenosis. RECOMMENDATION: *Consider gynecologic referral. Consider follow-up ultrasound in 3-6 months. Narrative 05/21/2024 6:24 PM EDT US PELVIS TRANSABDOMINAL AND TRANSVAGINAL Referring clinician's provided indication for this examination in Epic: Outside Radiology Order; right ovary cyst COMPARISON: CT ABDOMEN/PELVIS (UROGRAM) WITH AND WITHOUT CONTRAST Technique: Transabdominal sonography of the pelvis was performed. In addition, transvaginal imaging was performed to better evaluate the adnexae and ovaries. Color Doppler imaging was performed to assess vascularity. No 3-D images were acquired. Reported LMP: Postmenopausal FINDINGS: Uterus Size: 4.9 cm Orientation: Anteverted. Myometrium: Normal thickness and echotexture. Endometrium: No abnormal thickening, measures 2 mm. Small volume intracavitary fluid. Right adnexa: 7.5 cm right bilobed adnexal cyst, without internal nodularity demonstrated, noting some side-lobe artifact. Left adnexa: Left ovary is not seen. Free fluid: No significant free fluid. Procedure Note Emmy Díaz MD - 05/21/2024 US PELVIS TRANSABDOMINAL AND TRANSVAGINAL Referring clinician's provided indication for this examination in Epic:Outside Radiology Order; right ovary cyst COMPARISON: CT ABDOMEN/PELVIS (UROGRAM) WITH AND WITHOUT [id number] Technique: Transabdominal sonography of the pelvis was performed. Inaddition, transvaginal imaging was performed to better evaluate theadnexae and ovaries. Color Doppler imaging was performed to assessvascularity. No 3-D images were acquired. Reported LMP: Postmenopausal FINDINGS: Uterus Size: 4.9 cm Orientation: Anteverted. Myometrium: Normal thickness and echotexture. Endometrium: No abnormal thickening, measures 2 mm. Small volumeintracavitary fluid. Right adnexa: 7.5 cm right bilobed adnexal cyst, without internalnodularity demonstrated, noting some side-lobe artifact. Left adnexa: Left ovary is not seen. Free fluid: No significant free fluid. IMPRESSION: * 7.5 cm right adnexal cyst, without internal nodularity demonstrated. * Left ovary is not seen. *Small volume intracavitary fluid, as can be seen with cervicalstenosis. RECOMMENDATION: *Consider gynecologic referral. Consider follow-up ultrasound in 3-6months. Jayda CONKLIN IMG US PELVIS Final Resul t documented in this encounter Visit Diagnoses Diagnosis Unspecified ovarian cyst, right side- Primary Unspecified ovarian cyst, right side documented in this encounter Care Teams Rocket Propellant Plant Supervisor Relationship Specialty Start Date End Date Gabriel Munoz DO 179 [place] [address] [email or web address] PCP - General Internal Medicine 04/23/24 Gabriel Munoz DO 179 [place] [address] [email or web address] Internal Medicine 04/23/24 Palmira Yee MD [address] [place] [address] [email or web address] Historical LMR Provider 12/22/16 documented as of this encounter Additional Source Comments The information contained in this document represents components of the legal health record. It is not the complete legal health record.[facility]
--- OUTSIDE RECORDS SUMMARY | 2024-11-18 15:33 | XMS_ITS | Encounter Summary ---
Author Organization [facility] Address [address] [place] [address] Phone Care Team Providers Care Trim Crew Supervisor Name Role Phone Tammy, Gabriel Gleason DO Primary Care Provider [phone] Bigda, Gabriel A DO Primary Care Provider [phone] Bigda, Gabriel A DO Unavailable Palmira Yee MD Unavailable [phone] Bigda, Gabriel A DO Unavailable Encounter Details Date Type Department Care Team (Late st Contact Info) Description 11/22/2021 Procedure Pass [facility], [address] [id number] Social History Tobacco Use Types Packs/Day Years [...] Description 12/07/2024 11:20 AM EDT Office Visit [facility] [address] [place] [address] [place] [address] Palmira Yee MD [address] [address] documented as of this encounter Visit Diagnoses Not on filedocumented in this encounter Care Teams Trim Crew Supervisor Relationship Specialty Start Date End Date Gabriel Munoz DO PCP - General Internal Medicine 05/06/18 04/22/24 Gabriel Munoz DO 179 [place] [address] PCP - General Internal Medicine 04/23/24 Gabriel Munoz DO Internal Medicine 04/23/24 Palmira Yee MD [address] [place] [address] Historical LMR Provider 12/22/16 Gabriel Munoz DO 179 [place] [address] Insurance Assigned Provider 12/12/19 01/12/23 documented as of this encounter Additional Source Comments The information contained in this document represents components of the legal health record. It is not the complete legal health record.[facility]
--- OUTSIDE RECORDS SUMMARY | 2024-11-18 15:33 | XMS_ITS | Encounter Summary ---
Author Organization [facility] Address [address] [place] [address] Phone Care Team Providers Care Sales Mgr Name Role Phone Gabriel Munoz DO Primary Care Provider [phone] Gabriel Munoz DO Unavailable Palmira Yee MD Unavailable [phone] Reason for Referral * MRI/CAT Scan - Closed Specialty Diagnoses / Procedures Referred By Contmelva t Referred To Contact Radiology Diagnoses Gross hematuria Procedures CT Abdomen/Pelvis Jayda Harris PA 6 [facility] [place] [address] [place] [address] Phone: tel: fax: Referral ID Status Reason Start Date Expiration Date Visits Re quested Visits Authorized [id number] Closed 04/23/2024 04/23/2025 1 1 Encounter Details Date Type Department Care Team (Latest Contact Info) Description 04/23/2024 Transcribe Orders Virtual Department 30 [place] [address] Jayda Harris PA 6 [facility] [place] [address] [place] [address] Gross hematuria (Primary Dx) Social History Tobacco Use Types Packs/Day Years Used Date Smoking Tobacco: Never Assessed Education Answer Date Recorded Are you interested [...] Orientation Straight 03/11/2017 9: 38 AM EST documented as of this encounter Plan of Treatment Upcoming Encounters Date Type Department Care Team (Late st Contact Info) Description 12/07/2024 11:20 AM EDT Office Visit [facility] [address] [place] [address] Palmira Yee MD 22 [facility], [address] [place] [address] [email or web address] documented as of this encounter Results * CT ABDOMEN/PELVIS (UROGRAM) WITH AND WITHOUT CONTRAST (05/14/2024 11:33 AM EDT) Anatomical Region Laterality Modality Abdomen, Pelvis Computed Tomogra phy 05/18/2024 10:5 8 AM EDT Impressions 05/18/2024 11:27 AM EDT 1. No suspicious renal lesion. No urinary stone. No suspicious filling defect of the renal collecting systems and ureters (limited evaluation of distal segments of both ureters due to nonopacification). 2. A 7 cm complex cystic lesion of the right adnexa. RECOMMEND pelvic ultrasound and follow-up with her head lineman. 3. Large hiatal hernia. 4. Small pulmonary nodules. Current Fleischner Society guidelines were reviewed. For a high-risk patient, 12 month follow-up chest CT is considered optional. A clinically significant result was initiated on 05/18/2024 11:27 AM, Message ID [id number]. Narrative 05/18/2024 11:[address] ABDOMEN/PELVIS (UROGRAM) WITH AND WITHOUT CONTRAST INDICATION: Hematuria. TECHNIQUE: Multidetector-row CT of the abdomen and pelvis was performed before and after administration of intravenous contrast using tailored dose modulation techniques. Images were reconstructed in the axial, coronal, and sagittal planes. COMPARISON: None available. FINDINGS: Lower Chest: Multiple small pulmonary nodules measuring up to 2 mm in the visualized lung bases. Liver: Normal. Biliary: Normal. Spleen: Normal. Pancreas: Normal. Adrenal Glands: No nodule. Urinary: No stones. No suspicious filling defect of the renal collecting systems, ureters and urinary bladder. Limited evaluation of distal segments of both ureters due to nonopacification. Limited evaluation of the urinary bladder due to streak artifact from bilateral hip prostheses. No hydronephrosis or hydroureter. No suspicious renal lesion. Two 5 mm nonenhancing cortical cyst of the right kidney. Reproductive: Vaginal pessary is in place. Uterus is in situ. No left adnexal lesion. In the right adnexa, there is a multiloculated cystic lesion measuring 6.8 cm. Bowel: Colonic diverticulosis. Large hiatal hernia. Peritoneum/Retroperitoneum: No masses, pneumoperitoneum, or fluid. Lymph Nodes: No adenopathy. Vessels: Atherosclerotic plaques. No aneurysm of the abdominal aorta. Bones/Soft Tissues: No acute abnormality. No suspicious lesion. Degenerative findings in the spine. Bilateral hip prostheses. Procedure Note Hiram Grant MD - 05/18/2024 CT ABDOMEN/PELVIS (UROGRAM) WITH AND WITHOUT CONTRAST INDICATION: Hematuria. TECHNIQUE: Multidetector-row CT of the abdomen and pelvis was performedbefore and after administration of intravenous contrast using tailoreddose modulation techniques. Images were reconstructed in the axial,coronal, and sagittal planes. COMPARISON: None available. FINDINGS: Lower Chest: Multiple small pulmonary nodules measuring up to 2 mm in thevisualized lung bases. Liver: Normal. Biliary: Normal. Spleen: Normal. Pancreas: Normal. Adrenal Glands: No nodule. Urinary: No stones. No suspicious filling defect of the renal collecting systems,ureters and urinary bladder. Limited evaluation of distal segments of bothureters due to nonopacification. Limited evaluation of the urinary bladderdue to streak artifact from bilateral hip prostheses. No hydronephrosis or hydroureter. No suspicious renal lesion. Two 5 mm nonenhancing cortical cyst of theright kidney. Reproductive: Vaginal pessary is in place. Uterus is in situ. No leftadnexal lesion. In the right adnexa, there is a multiloculated cysticlesion measuring 6.8 cm. Bowel: Colonic diverticulosis. Large hiatal hernia. Peritoneum/Retroperitoneum: No masses, pneumoperitoneum, or fluid. Lymph Nodes: No adenopathy. Vessels: Atherosclerotic plaques. No aneurysm of the abdominal aorta. Bones/Soft Tissues: No acute abnormality. No suspicious lesion.Degenerative findings in the spine. Bilateral hip prostheses. IMPRESSION: 1. No suspicious renal lesion. No urinary stone. No suspicious fillingdefect of the renal collecting systems and ureters (limited evaluation ofdistal segments of both ureters due to nonopacification). 2. A 7 cm complex cystic lesion of the right adnexa. RECOMMEND pelvicultrasound and follow-up with her head lineman. 3. Large hiatal hernia. 4. Small pulmonary nodules. Current Fleischner Society guidelines werereviewed. For a high-risk patient, 12 month follow-up chest CT isconsidered optional. A clinically significant result was initiated on 05/18/2024 11:27 AM,Message ID [id number]. Jayda CONKLIN IMG CT ABD/PELVIS Final Res ult documented in this encounter Visit Diagnoses Diagnosis Gross hematuria- Primary Gross hematuria documented in this encounter Care Teams Sales Mgr Relationship Specialty Start Date End Date Gabriel Munoz DO 179 [place] [address] [email or web address] PCP - General Internal Medicine 04/23/24 Gabriel Munoz DO 179 [place] [address] [email or web address] Internal Medicine 04/23/24 Palmira Yee MD [address] [place] [address], [facility] [address] [place] [address] [email or web address] Historical LMR Provider 12/22/16 documented as of this encounter Additional Source Comments The information contained in this document represents components of the legal health record. It is not the complete legal health record.[facility]
--- OUTSIDE RECORDS SUMMARY | 2024-11-18 15:33 | XMS_ITS | Encounter Summary ---
Author Organization [facility] Address [address] [place] [address] Phone Care Team Providers Care Liaison Inspection Laboratory Assistant Name Role Phone Tammy Gabriel Gleason DO Primary Care Provider [phone] Gabriel Munoz DO Unavailable Palmira Yee MD Unavailable [phone] Encounter Details Date Type Department Care Team (Late st Contact Info) Description 04/23/2024 Procedure Pass [facility], Ct Scan - [address] [address] Social History Tobacco Use Types Packs/Day Years [...] Description 12/07/2024 11:20 AM EDT Office Visit [facility] [address] [place] [address] [place] [address] Palmira Yee MD [address] [place] [address] documented as of this encounter Visit Diagnoses Not on filedocumented in this encounter Care Teams Liaison Inspection Laboratory Assistant Relationship Specialty Start Date End Date Gabriel Munoz DO 179 [place] [address] PCP - General Internal Medicine 04/23/24 Gabriel Munoz DO [address] [place] [address] Internal Medicine 04/23/24 Palmira Yee MD [address] [place] [address] Historical LMR Provider 12/22/16 documented as of this encounter Additional Source Comments The information contained in this document represents components of the legal health record. It is not the complete legal health record.[facility]
--- OUTSIDE RECORDS SUMMARY | 2024-11-18 15:33 | XMS_ITS | Encounter Summary ---
Author Organization [facility] Address [address] [place] [address] Phone Care Team Providers Care Marine Electronics Repairer Name Role Phone Tammy Gabriel Gleason DO Primary Care Provider Gabriel Munoz DO Unavailable Palmira Yee MD Unavailable [phone] Encounter Details Date Type Department Care Team (Late st Contact Info) Description 08/06/2024 Procedure Pass [place] Admitting Dept - Virtual Department 30 [place] [address] Social History Tobacco Use Types Packs/Day Years Used Date Smoking Tobacco: Former Cigarettes 1.5 13 Smokeless Tobacco: Never Comments:Quit approx 1991 Alcohol Use Standard Drinks/Week [...] Upcoming Encounters Date Type Department Care Team ([facility] st Contact Info) Description 12/07/2024 11:20 AM EDT Office Visit [facility] [address] [place] [address] Palmira Yee MD [address] [place] [address] documented as of this encounter Visit Diagnoses Not on filedocumented in this encounter Care Teams Marine Electronics Repairer Relationship Specialty Start Date End Date Gabriel Munoz DO [address] [place] [address] PCP - General Internal Medicine 04/23/24 Gabriel Munoz DO [address] [place] [address] Internal Medicine 04/23/24 Palmira Yee MD [address] [place] [address] Historical LMR Provider 12/22/16 documented as of this encounter Additional Source Comments The information contained in this document represents components of the legal health record. It is not the complete legal health record.[facility]
--- OUTSIDE RECORDS SUMMARY | 2024-11-18 15:33 | XMS_ITS | Encounter Summary ---
Author Organization [facility] Address [address] [place] [address] [place] [address] Phone Care Team Providers Care Slabber Name Role Phone Gabriel Munoz DO Primary Care Provider [phone] Bigda, Gabriel Gleason DO Primary Care Provider [phone] BigdaGabriel DO Unavailable Palmira Yee MD Unavailable [phone] Marlo Buchanan DO Unavailable Jenny Pena PATTERN DRAFTER Unavailable Beny Bee MD Unavailable Nathan Barcenas MD Unavailable Unavailable May Rendon RDCS Unavailable [email or web address] Gabriel Munoz DO Unavailable Encounter Details Date Type Department Care Team (Late st Contact Info) Description 08/21/2019 Ancillary Orders [facility] [address] [place] [address] Palmira Yee MD 22 [facility], [address] [place], [place] [id number] [email or web address] Breast screening Social History Tobacco Use Types [...] Visit [facility] [address] [place] [address] Palmira Yee MD 22 [facility], [address] [place] [address] [email or web address] documented as of this encounter Results * BI MAMMOGRAM SCREENING WITH TOMOSYNTHESIS WITH CAD (BILATERAL) (11/02/2019 9:36 AM EDT) Anatomical Region Laterality Modality Breast Left, Breast Right, Breast Bilateral Bila teral Mammography 11/02/2019 10:0 0 AM EDT Impressions 11/02/2019 10:02 AM EDT No mammographic change indicative of malignancy. Routine screening is recommended. BI-RADS CATEGORY 2 - BENIGN DENSITY: There are scattered fibroglandular densities. Narrative 11/02/2019 10:02 AM EDT Bilateral full-field digital screening mammography is obtained and read in conjunction with computer-aided detection. Tomosynthesis as well as 2-D C view imaging of both breasts in two planes also obtained. Comparison made to multiple prior, most recent October 06, 2018, and most remote May 19, 2013. No dominant mass, architectural distortion, worrisome asymmetry, or suspicious calcification is identified. No skin or nipple finding of concern is appreciated. Chronic nodular asymmetry inner left breast is stable. us Palmira Yee MD IMG MG EXAMS Final Result documented in this encounter Visit Diagnoses Diagnosis Breast screening Breast screening, unspecified Breast screening Breast screening, unspecified documented in this encounter Additional Health Concerns Infection Onset Date Last Indicated Resolved Time CoV-Exposed Comment:Recent close contact documented in the COVID-19 PCR/PRO order 10/25/2020 10/25/2020 11/09/2020 1:23 AM E DT documented as of this encounter Care Teams Slabber Relationship Specialty Start Date End Date Gabriel Munoz DO PCP - General Internal Medicine 05/06/18 04/22/24 Gabriel Munoz DO [address] [place] [address] [place] [address] PCP - General Internal Medicine 04/23/24 Gabriel Munoz DO Internal Medicine 04/23/24 Palmira Yee MD [address] [place] [address], [address] [place] [address] [email or web address] Historical LMR Provider 12/22/16 Marlo Buchanan DO [address] [place] [address] Orthopedics & Sports Medicine, [facility] [place] [address] Historical LMR Provider 12/22/16 03/11/21 Jenny Pena, KATHRYN 14 [facility] [address] [place] [address] [email or web address] Historical LMR Provider 12/22/16 03/11/21 Beny Bee MD 14 [facility] [address] [place] [address] [email or web address] Historical LMR Provider 12/22/16 03/11/21 Nathan Barcenas MD Historical LMR Provider 12/22/16 03/11/21 May Rendon, RDCS Historical LMR Provider 12/22/16 03/11/21 Gabriel Munoz DO [address] [place] [address] [email or web address] Insurance Assigned Provider 12/12/19 01/12/23 documented as of this encounter Additional Source Comments The information contained in this document represents components of the legal health record. It is not the complete legal health record.[facility]
--- OUTSIDE RECORDS SUMMARY | 2024-11-18 15:33 | XMS_ITS | Encounter Summary ---
Author Organization [facility] Address [address] [place] [address] Phone Care Team Providers Care Alligator Trapper Name Role Phone Tammy Gabriel Gleason DO Primary Care Provider [phone] Bigda, Gabriel Gleason DO Primary Care Provider [phone] Demarcoda, Gabriel Gleason DO Unavailable Palmira Yee MD Unavailable Marlo Buchanan DO Unavailable [phone] Jenny Pena [employer] Unavailable Beny Bee MD Unavailable Nathan Barcenas MD Unavailable Unavailable May Rendon RDCS Unavailable [email or web address] Beny Bee MD Unavailable BigGabriel hoover DO Unavailable Encounter Details Date Type Department Care Team (Latest Contact Info) Description 10/15/[address] [facility] [address] [place] [address] Juliette Arredondo PA-C [address] [place], [place] [id number] Routine general medical examination at a health care facility (Primary Dx); Avitaminosis D Social History Tobacco Use Types Packs/Day Years [...] Description 12/07/2024 11:20 AM EDT Office Visit [facility] [address] [place] [address] Palmira Yee MD [address] [address] [email or web address] documented as of this encounter Results * 25-OH vitamin D (10/15/2018 7:51 AM EDT) 25 OH VIT D (TOTAL) 55 30 - 60 ng/mL [facility] Blood 10/15/2018 7:51 AM EDT 10/15/2018 8:26 AM EDT us June [facility] LAB BLOOD ORDERABLES Final R esult Performing Organization Address City/[facility] Co de Phone Number [address] [address] * Hepatitis C antibody, qualitative (10/15/2018 7:51 AM EDT) HCV NON-REACTIV E NON-REACTI VE [facility] Blood 10/15/2018 7:51 AM EDT 10/15/2018 8:26 AM EDT June [facility] LAB BLOOD ORDERABLES Final R esult Performing Organization Address City/[facility]/ZIP Co de Phone Number [address] [address] * (ABNORMAL) Lipid panel (10/15/2018 7:51 AM EDT) HDL 89 mg/dL [facility] Comment: Interpretation <40 mg/dL: Low HDL cholesterol (major risk factor for CHD) Greater than or equal to 60 mg/dL: High HDL cholesterol ( negative risk factor for CHD) HDL - cholesterol is affected by a number of factors, e.g. smoking, excerise, hormones, sex and age. CHOLESTEROL 219 0 - 240 mg/dL [facility] TRIGLYCERIDES 80 30 - 160 mg/dL [facility] LDL 114 50 - 129 mg/dL [facility] Comment: LDL levels in terms of risk for coronary heart disease: <100 mg/dL: Optimal 100-129 mg/dL: Near or above optimal 130-159 mg/dL: Borderline high 160-189 mg/dL: High >190 mg/dL: Very High CARDIAC RISK RATIO 2.5(L) 3.3 - 4.4 C [facility] Blood 10/15/2018 7:51 AM EDT 10/15/2018 8:26 AM EDT June Maria [facility] LAB BLOOD ORDERABLES Final R esult [facility] [address] [place] [address] * CBC and differential (10/15/2018 7:51 AM EDT) WBC 5.45 3.40 - 11.20 K/uL [facility] RBC 4.39 3.80 - 4.80 M/uL [facility] HGB 14.0 12.0 - 15.0 g/dL [facility] HCT 41.0 36.0 - 46.0 % [facility] PLT 330 130 - 400 K/uL [facility] MCV 93.4 79.0 - 98.0 fL [facility] MCH 31.9 27.0 - 34.8 pg [facility] MCHC 34.1 31.5 - 36.0 g/dL [facility] RDW 12.7 10.8 - 14.6 % [facility] MPV 10.0 9.4 - 12.4 fl [facility] NRBC 0.00 0.00 /100 WBCs [facility] ABSOLUTE NRBC 0.00 0.00 K/uL [facility] DIFF METHOD Auto [facility] NEUTS 55.9 45.30 - 77.70 % [facility] LYMPHS 31.0 12.30 - 39.70 % [facility] MONOS 8.8 4.10 - 12.80 % [facility] EOS 3.3 0 - 7.2 % [facility] BASOS 0.6 0 - 2.80 % [facility] Granulocytes, immature (%) 0.4 0.0 - 0.9 % [facility] ABSOLUTE NEUTS 3.05 1.40 - 7.70 K/uL [facility] ABSOLUTE LYMPHS 1.69 0.60 - 3.20 K/uL [facility] ABSOLUTE MONOS 0.48 0.11 - 0.59 K/uL [facility] ABSOLUTE EOS 0.18 0.01 - 0.50 K/uL [facility] ABSOLUTE BASOS 0.03 0.00 - 0.08 K/uL [facility] Granulocytes, immature 0.02 0.00 - 0.05 K/uL [facility] Blood 10/15/2018 7:51 AM EDT 10/15/2018 8:26 AM EDT June Maria Elena [facility] LAB BLOOD ORDERABLES Final R esult Performing Organization Address City/State/[facility] Co de Phone Number [address] [address] * Comprehensive metabolic panel (10/15/2018 7:51 AM EDT) SODIUM 140 133 - 146 mmol/L [facility] POTASSIUM 4.8 3.3 - 5.1 mmol/L [facility] CHLORIDE 104 96 - 108 mmol/L [facility] CO2 26 21 - 35 mmol/L [facility] BUN 18 6 - 19 mg/dL [facility] CREATININE 0.70 0.5 - 1.5 mg/dL [facility] GLUCOSE 94 70 - 99 mg/dL [facility] ALBUMIN 4.0 3.9 - 4.8 g/dL [facility] TOTAL PROTEIN 7.4 6.5 - 8.0 g/dL [facility] CALCIUM 9.5 8.4 - 10.3 mg/dL [facility] ALKALINE PHOSPHATASE 77 39 - 117 U/L [facility] TOTAL BILIRUBIN 0.5 0.0 - 1.2 mg/dL [facility] AST 24 0 - 37 U/L [facility] ALT 14 0 - 40 U/L [facility] GLOBULIN 3.4 1 - 4.8 g/dL [facility] EGFR 87 >59 mL/min/1.7 3m2 [facility] Comment:If patient is black, multiply result by 1.159. Estimated glomerular filtration rate calculated using the CKD-EPI equation. ANION GAP 15 10 - 20 mmol/L [facility] Blood 10/15/2018 7:51 AM EDT 10/15/2018 8:26 AM EDT June Maria Elena [facility] LAB BLOOD ORDERABLES Final R esult [facility] [address] [place] [address] documented in this encounter Visit Diagnoses Diagnosis Routine general medical examination at a health care facility- Primary Avitaminosis D Unspecified vitamin D deficiency documented in this encounter Additional Health Concerns Infection Onset Date Last Indicated Resolved Time CoV-Exposed Comment:Recent close contact documented in the COVID-19 PCR/PRO order 10/25/2020 10/25/2020 11/09/2020 1:23 AM E DT documented as of this encounter Care Teams Alligator Trapper Relationship Specialty Start Date End Date Gabriel Munoz DO PCP - General Internal Medicine 05/06/18 04/22/24 Gabriel Munoz DO [address] [place] [address] PCP - General Internal Medicine 04/23/24 Gabriel Munoz DO Internal Medicine 04/23/24 Palmira Yee MD [address] [place] [address] [address] [place] [address] [email or web address] Historical LMR Provider 12/22/16 Marlo Buchanan DO [address] [place] [address] [facility], [place] [address] Historical LMR Provider 12/22/16 03/11/21 Jenny Pena, [employer] [address] [place] [address] [place] [phone] [email or web address] Historical LMR Provider 12/22/16 03/11/21 Beny Bee MD [address] [place] [address] Historical LMR Provider 12/22/16 03/11/21 Nathan Barcenas MD Historical LMR Provider 12/22/16 03/11/21 May Rendon, RDCS Historical LMR Provider 12/22/16 03/11/21 Beny Bee MD [address] [place] [address] Insurance Assigned Provider 06/01/17 04/03/19 Gabriel Munoz DO [address] [place] [address] [email or web address] Insurance Assigned Provider 12/12/19 01/12/23 documented as of this encounter Additional Source Comments The information contained in this document represents components of the legal health record. It is not the complete legal health record.[facility]
--- OUTSIDE RECORDS SUMMARY | 2024-11-18 15:33 | XMS_ITS | Encounter Summary ---
Author Organization [facility] Address [address] [place] [address] Phone Care Team Providers Care Home Appliance Tech Name Role Phone Tammy, Gabriel Rosibel DO Primary Care Provider [phone] Bigda, Gabriel A DO Primary Care Provider [phone] Bigda, Gabriel A DO Unavailable Palmira Yee MD Unavailable [phone] Encounter Details Date Type Department Care Team (Late st Contact Info) Description 10/29/2023 Procedure Pass [facility], [address] [id number] Social History Tobacco Use Types Packs/Day Years [...] Upcoming Encounters Date Type Department Care Team ([facility] Contact Info) Description 12/07/2024 11:20 AM EDT Office Visit [facility] [address] [place] [address] Palmira Yee MD [address] [address] documented as of this encounter Visit Diagnoses Not on filedocumented in this encounter Care Teams Home Appliance Tech Relationship Specialty Start Date End Date Gabriel Munoz DO PCP - General Internal Medicine 05/06/18 04/22/24 Gabriel Munoz DO [address] [place] [address] PCP - General Internal Medicine 04/23/24 Gabriel Munoz DO Internal Medicine 04/23/24 Palmira Yee MD [address] [place] [phone] Historical LMR Provider 12/22/16 documented as of this encounter Additional Source Comments The information contained in this document represents components of the legal health record. It is not the complete legal health record.[facility]
[2024-11-18 19:50] LABS: Appearance Urine Cloudy; Glucose Urine UA Negative (Negative); PH 7.0 (5.0-9.0); Specific Gravity - Urine 1.015 (1.005-1.025); UMIC TRIGGER UACC YES
[2024-11-18 19:55] LABS: UACC Culture Trigger YES
== END 2024-11-18 12:03 | disposition home or self-care (01) ==
LOC: HO.MANLDS 12:02
PROVIDERS: Visit Provider Physician Assistant
DX: N39.0 Urinary tract infection, site not specified (principal)
CPT/HCPCS: 81001; 87086